=== PATIENT | male | born 1985 | race Two or more races ===

== ENCOUNTER 2020-08-20 12:34 | Emergency (ER) | payer MEDICAID, SELFPAY ==
[2020-08-20 13:55] VITALS: BP 130/75; PULSE 98; RESP 20; TEMP 36.9; O2SAT 100; BMI 36.5
[2020-08-20 14:23] LABS: MANUAL DIFF FLAG NO
[2020-08-20 14:24] LABS: Basophils Percent Auto 0.3 % (0-2); Eosinophils Percent Auto 0.2 % (0-4); Hemoglobin 16.1 g/dl (14.0-18.0); Imm Gran Abs Auto 0.09 X10*3/uL (0.00-0.03); Imm Gran Pct Auto 0.7 % (0.0-0.4); Lymphocytes Percent Auto 15.7 % (20-40); Mean Corpuscular HGB Conc 31.6 g/dl (31.0-36.0); Mean Corpuscular Hemoglobin 28.5 pg (27.0-33.0); Mean Corpuscular Volume 90.3 fL (80-98); Monocytes Absolute Auto 0.9 X10*3/uL (0.1-1.2); Monocytes Percent Auto 7.1 % (2-11); Neutrophils Absolute Auto 9.9 X10*3/uL (2.0-8.3); Platelet Count 339 X10*3/uL (160-400); Red Blood Count 5.65 X10*6/uL (4.60-5.80); Red Cell Distribution Width 15.4 % (11.0-16.0)
[2020-08-20 14:25] LABS: Glucose Urine UA NEG (NEG); Leukocyte Esterase Urine NEG (NEG); Nitrite Urine NEG (NEG); Specific Gravity - Urine 1.025 (1.005-1.025); Urine Blood NEG (NEG); Urine Ketones NEG (NEG); Urine Protein 1+ MG/DL (NEG-TRACE)
[2020-08-20 14:28] LABS: Appearance Urine HAZY; Color Urine YELLOW
[2020-08-20 14:34] LABS: Mucus Urine 2+ /LPF
[2020-08-20 15:48] VITALS: BP 127/75; PULSE 59; RESP 17; O2SAT 97
--- NOTE | 2020-08-20 16:00 | PC.NURSE ---
Patient has been sipping on water without difficulty since being placed in a bed.
--- NOTE | 2020-08-20 16:08 | ED_ITS ---
HPI - Abdominal Pain General Chief Complaint: Abdominal Pain Stated Complaint: Abd Pain Time Seen by Provider: 08/20/20 15:42 Source: patient Mode of arrival: ambulatory Limitations: no limitations History of Present Illness HPI narrative: Patient comes emergency room complaining left upper quadrant burning sensation. Patient states for the last 2 weeks, he has been having bloating, nausea vomiting and diarrhea. Patient states that he recently stopped the keto diet and resume his normal diet. Patient states this morning he went to a walk-in clinic, told him about his symptoms, he received a Toradol injectio n. Patient states that since then, he has been having epigastric burning and left upper quadrant burning as well. At this time, patient has no vomiting or diarrhea. MD elicited complaint: abdominal pain Related Data Previous Rx's Medication Instructions Recorded sucralfate [Carafate] 1 g PO BID #20 tab 08/20/20 Allergies Allergy/AdvReac Type Severity Reaction Status Date / Time No Known Allergies Allergy Verified 08/20/20 13:53 Review of Systems Review of Systems Constitutional : No Weight loss, No Fever, No Chills, No Night Sweats, No Fatigue, No Malaise ENT/Mouth : No Hearing loss, No Ear Pain, No Nasal Congestion, No Sinus Pain, No Hoarseness, No sore throat, No Rhinorrhea, No Swallowing Difficulty Eyes: No Eye Pain, No Swelling, No Redness, No Foreign Body, No Discharge, No Vision Changes Cardiovascular : No Chest Pain, No SOB, No Dyspnea on Exertion, No Orthopnea, No Edema, No Palpitations Respiratory : No Cough, No Sputum, No Wheezing, No Smoke Exposure, No Dyspnea Gastrointestinal : Complaining of nausea and vomiting and diarrhea which now self resolved No Constipation, complaining of epigastric and left upper quadrant burning sensation, No Hematochezia, No Melena Genitourinary : no irregular bleeding, No Dysuria, No Urinary Frequency, No Hematuria, No Urinary Incontinence, No Urgency, No Flank Pain, No Urinary Flow Changes, No Hesitancy Musculoskeletal : No joint pain, No Myalgias, No Joint Swelling Skin : No Skin Lesions, No rash Neuro : No Weakness, No Numbness, No Paresthesias, No Loss of Consciousness, No Dizziness, No Headache Psych : No Anxiety/Panic, No Depression, No SI/HI/AH/VH, No Social Issues, Heme/Lymph: No Bruising, No Bleeding,No Lymphadenopathy Endocrine : No Polyuria, No Polydipsia, No Temperature Intolerance Physical Exam Vital Signs: Vital Signs: Last Vital Signs Temp 98.5 F 08/20/20 13:55 Pulse 59 08/20/20 15:48 Resp 17 08/20/20 15:48 BP 127/75 08/20/20 15:48 Pulse Ox 97 08/20/20 15:48 Body Mass Index 36.5 Appearance: Alert. Oriented X3. No acute distress. Eyes: Pupils equal, round and reactive to light. ENT: Pharynx normal. Neck: Normal inspection. Neck supple. No lymph nodes noted. No crepitus CVS: Normal heart rate and rhythm. Pulses normal. Normal S1 and S2 Respiratory: No respiratory distress. Breath sounds normal. No Wheezing. No rales Abdomen: Soft and nontender. No rigidity. No distention. good BS x4 Skin: Skin warm and dry. Normal skin color. Normal skin turgor. Extremities: No lower extremity edema. No lower extremity edema. No Lacerations. No Rash Neuro: Oriented X 3. No motor deficit. No sensory deficit. Moving all exter mities. No slurred speech. Course Course Course Narrative: I discussed the labs with the patient. Patient has leukocytosis, likely reactive due to the nausea and vomiting and diarrhea that he has had over last 2 weeks. At this time, patient feels better after the GI cocktail, I discussed with the patient not to ingest any NSAIDs. Patient states he already takes omeprazole at home, patient will be taking care of it now. Patient instructed to follow-up with his primary care physician. Patient also requested to have the phone number for our gas analyst. MDM - Abdominal Pain Lab Data Result diagrams: 08/20/20 14:17 08/20/20 14:17 Labs: Lab Results 08/20/20 08/20/20 08/20/20 Range/Units 14:17 14:17 14:17 WBC 13.0 H (4.8-10.8) X10*3/uL RBC 5.65 (4.60-5.80) X10*6/uL Hgb 16.1 (14.0-18.0) g/dl Hct 51.0 (42-52) % MCV 90.3 (80-98) fL MCH 28.5 (27.0-33.0) pg MCHC 31.6 (31.0-36.0) g/dl RDW 15.4 (11.0-16.0) % Plt Count 339 (160-400) X10*3/uL MPV 9.0 L (9.4-12.4) fL Immature Gran % (Auto) 0.7 H (0.0-0.4) % Neut % (Auto) 76.0 H (45-73) % Lymph % (Auto) 15.7 L (20-40) % [place] % (Auto) 7.1 (2-11) % Eos % (Auto) 0.2 (0-4) % Baso % (Auto) 0.3 (0-2) % Lymph # (Auto) 2.0 (1.2-4.9) X10*3/uL [place] # (Auto) 0.9 (0.1-1.2) X10*3/uL Eos # (Auto) 0.0 (0.0-0.4) X10*3/uL Baso # (Auto) 0.0 (0.0-0.2) X10*3/uL Abs Immat Gran (auto) 0.09 H (0.00-0.03) X10*3/uL Absolute Neuts (auto) 9.9 H (2.0-8.3) X10*3/uL Absolute Nucleated RBC 0.000 (0.0-0.012) X10*3/uL Nucleated RBC % (auto) 0.0 (0.0-0.2) /100WBC Hold Blue Top SEE NOTE Sodium 138 (135-145) mmol/L Potassium 4.5 (3.3-5.1) mmol/L Chloride 103 (96-108) mmol/L Carbon Dioxide 27 (22-29) mmol/L Anion Gap 13 (12-20) BUN 12 (9-16) mg/dL Creatinine 1.23 (0.5-1.4) mg/dL Estim Creat Clear Calc 100.2 Estimated GFR > 60 Random Glucose 78 (60-115) mg/dL Calcium 9.8 (8.4-10.2) mg/dL Total Bilirubin 0.7 (0.0-1.0) mg/dL AST 17 (5-37) U/L ALT 26 (0-40) U/L Alkaline Phosphatase 56 (39-117) U/L Total Protein 7.3 (6.5-8.0) g/dL Albumin 4.3 (3.5-5.0) g/dL Urine Color Urine Appearance Urine pH (5.0-8.0) Ur Specific [place] (1.005-1.025) Urine Protein (NEG-TRACE) MG/DL Urine Glucose (UA) (NEG) MG/DL Urine Ketones (NEG) MG/DL Urine Blood (NEG) Urine Nitrite (NEG) Ur Leukocyte Esterase (NEG) Urine RBC (0) /HPF Urine WBC (0-4) /HPF Ur Squamous Epith Cells /LPF Urine Bacteria /LPF Urine Mucus /LPF 08/20/20 Range/Units 14:17 WBC (4.8-10.8) X10*3/uL RBC (4.60-5.80) X10*6/uL Hgb (14.0-18.0) g/dl Hct (42-52) % MCV (80-98) fL MCH (27.0-33.0) pg MCHC (31.0-36.0) g/dl RDW (11.0-16.0) % Plt Count (160-400) X10*3/uL MPV (9.4-12.4) fL Immature Gran % (Auto) (0.0-0.4) % Neut % (Auto) (45-73) % Lymph % (Auto) (20-40) % [place] % (Auto) (2-11) % Eos % (Auto) (0-4) % Baso % (Auto) (0-2) % Lymph # (Auto) (1.2-4.9) X10*3/uL [place] # (Auto) (0.1-1.2) X10*3/uL Eos # (Auto) (0.0-0.4) X10*3/uL Baso # (Auto) (0.0-0.2) X10*3/uL Abs Immat Gran (auto) (0.00-0.03) X10*3/uL Absolute Neuts (auto) (2.0-8.3) X10*3/uL Absolute Nucleated RBC (0.0-0.012) X10*3/uL Nucleated RBC % (auto) (0.0-0.2) /100WBC Hold Blue Top Sodium (135-145) mmol/L Potassium (3.3-5.1) mmol/L Chloride (96-108) mmol/L Carbon Dioxide (22-29) mmol/L Anion Gap (12-20) BUN (9-16) mg/dL Creatinine (0.5-1.4) mg/dL Estim Creat Clear Calc Estimated GFR Random Glucose (60-115) mg/dL Calcium (8.4-10.2) mg/dL Total Bilirubin (0.0-1.0) mg/dL AST (5-37) U/L ALT (0-40) U/L Alkaline Phosphatase (39-117) U/L Total Protein (6.5-8.0) g/dL Albumin (3.5-5.0) g/dL Urine Color YELLOW Urine Appearance HAZY Urine pH 6.0 (5.0-8.0) Ur Specific [place] 1.025 (1.005-1.025) Urine Protein 1+ H (NEG-TRACE) MG/DL Urine Glucose (UA) NEG (NEG) MG/DL Urine Ketones NEG (NEG) MG/DL Urine Blood NEG (NEG) Urine Nitrite NEG (NEG) Ur Leukocyte Esterase NEG (NEG) Urine RBC 1-4 (0) /HPF Urine WBC 1-4 (0-4) /HPF Ur Squamous Epith Cells NONE /LPF Urine Bacteria NONE /LPF Urine Mucus 2+ /LPF Discharge Plan Discharge Clinical Impression: Gastritis Qualifiers: Gastritis type: unspecified gastritis Chronicity: unspecified Gastritis bleeding: without bleeding Qualified Code(s): K29.70 - Gastritis, unspecified, without bleeding Patient Disposition: Home, Self-Care Instructions: Gastritis (ED), Diet for Stomach Ulcers and Gastritis (ED) Additional Instructions: Please follow-up with your primary care physician tomorrow. If you have any worsening or new symptoms, please return to the emergency room or call 911 Prescriptions: New sucralfate [Carafate] 1 gram tablet 1 g PO BID Qty: 20 RF: 0 Referrals: Clarence Metz [Physician] - 2 days [facility] Past Medical History Medical History No known health problems Social History Social History Alcohol intake: current Alcohol intake frequency: a few times a week Use of substances other than those prescribed or required for medical reasons: No Advance Directives: No Advance Directives Information Provided: Yes
[2020-08-20 16:14] LABS: Alanine Aminotransferase 26 U/L (0-40); Albumin Level 4.3 g/dL (3.5-5.0); Alkaline Phosphatase 56 U/L (39-117); Anion Gap 13 (12-20); Aspartate Amino Transferase 17 U/L (5-37); Bilirubin Total 0.7 mg/dL (0.0-1.0); Blood Urea Nitrogen 12 mg/dL (9-16); Calcium 9.8 mg/dL (8.4-10.2); Carbon Dioxide 27 mmol/L (22-29); Chloride 103 mmol/L (96-108); Creatinine Clr Calc Pharmacy 100.2; Estimated Glomerular Filt Rate > 60; Glucose Random 78 mg/dL (60-115); Potassium 4.5 mmol/L (3.3-5.1); Sodium 138 mmol/L (135-145); Total Protein 7.3 g/dL (6.5-8.0)
[2020-08-20] MEDS: Lidocaine HCl Viscous 2 % 15 ML SOLUTION MUCOUS MEM (16:17)
[2020-08-20] MEDS: Magnesium Hydrox/Alum Hydrox 30 ML ORAL.SUSP PO (16:17)
== END 2020-08-20 16:59 | disposition home or self-care (01) ==
PROVIDERS: Emergency Provider Emergency Medicine; PCP Nurse Practitioner Pediatrics
DX: K29.70 Gastritis, unspecified, without bleeding (principal); R10.12 Left upper quadrant pain
CPT/HCPCS: 36415; 80053; 81001; 85025; 99283; 99284

== ENCOUNTER 2023-09-02 15:25 | Outpatient (AMB) | payer OTHER, SELFPAY ==
[2023-09-02 15:29] VITALS: BP 112/72; PULSE 80; O2SAT 98; BMI 42.8
--- NOTE | 2023-09-02 15:29 | MHC.PC.OV ---
Vital Signs 09/02/23 15:29 Height 5 ft 9 in Weight 290 lb BMI 42.8 BP 112/72 Blood Pressure Location Lt brachial Position Sitting Pulse 80 Pulse Source Pulse Oximeter Pulse Oximetry (%) 98 Oxygen Delivery Method Room Air Intake Visit Reasons: Est Care/Requesting PE Intake Note: Pt is here today as a New Patient/PE Allergies No Known Allergies Allergy (Verified 09/02/23 15:46) Medication List - Last Reconciled 09/02/23 by KAE Sheldon bupropion HCl (smoking deter) 150 mg PO BID clonidine HCl 0.1 mg PO BID hydroxyzine pamoate 25 mg PO BEDTIME meloxicam 15 mg PO DAILY metformin 500 mg PO BID methocarbamol 750 mg PO BID PRN pantoprazole 40 mg PO DAILY pramipexole 0.25 mg PO BID PRN Tobacco use date assessed: 09/02/23 Dental Screening Dental Screen Date: 09/02/23 Did you have a dental visit in the last 12 months?: Yes Did you have a dental problem in the last 6 months where you did not have access to dental care?: Yes Was dental information given to patient?: Patient has dentist HPI HPI Comments History of Present Illness Details Patient is a 38-year-old male who I am meeting for the 1st time and is in for a physical exam. Patient is up-to-date with Tdap. Patient has established therapy with Edie, would like to find another therapist who is a better personality fit. Will have patient speak with in office community [facility]blem[facility] navigator to assist with this. He has a past medical history significant for: Generalized anxiety: Has established care with therapist. Discussed with patient the potential benefits of starting an SSRI. He would like to hold off for now and discuss at next visit. Patient does not endorse SI or HI. Osteoarthritis of bilateral knees: Patient reports bilateral steroid injections in his knees 3 months prior by [facility]. With good effect. Bilateral plantar fasciitis: Patient has history of foot injections for plantar fasciitis with good effect. States that pain is starting to return, will refer to Podiatry. Patient will also be educated on splints he can wear at night to help with pain in the morning. History of opioid use: Patient currently seeing be a chin and is weaning off of methadone. Started at 40 mg 1 year prior is now down to 3 mg with goal of weaning off completely. Right elbow pain: Occurred two months prior to appointment. Physical exam consistent with right bicep tear. Will order X-rays and refer to orthopedics. Sexual Dysfunction: History of hypersensitivity and premature ejaculation. Will refer to urology. Patient would also like to discuss reproductive difficulties. Pre-diabetic: Will draw A1c. Was started on metformin by previous provider. Has complaints of diarrhea. Will switch to extended release. Will draw fasting labs. [facility] Medical History No known health problems Family History Maternal Uncle Substance use disorder Mental health disorder Paternal Uncle Substance use disorder Father Substance use disorder Social History Housing: House Alcohol intake: current Alcohol intake frequency: a few times a week Patient Tobacco Use Status: Former Tobacco user e-Cigarette/Vaping Use: Currently Using service: No Current occupational status: employed Cognitive needs: No Hearing needs: No Vision needs: Yes Questionnaire PHQ-9 Over the last 2 weeks, how often have you been bothered by any of the following problems? 1. Little interest or pleasure in doing things: more than half the days 2. Feeling down, depressed, or hopeless: several days 3. Trouble falling or staying asleep, or sleeping too much: more than half the days 4. Feeling tired or having little energy: more than half the days 5. Poor appetite or overeating: several days 6. Feeling bad about yourself - or that you are a failure or have let yourself or your family down: more than half the days 7. Trouble concentrating on things, such as reading the newspaper or watching television: several days 8. Moving or speaking so slowly that other people could have noticed. Or the opposite - being so fidgety or restless that you have been moving around a lot more than usual: not at all 9. Thoughts that you would be better off or of hurting yourself in some way: not at all Total score: 11 Depression Screening Interpretation: Negative (meeting with community mental health navigator. ) Depression Screening Done: Yes 72943 - PHQ-9 Billing: Yes Source: Developed by Drs. Jaime Pineda, Katarina Sahu, Luis Flores and colleagues, with an educational yaa from [employer]. Thrive Questionnaire Date Thrive assessed: 09/02/23 I am a: Patient What is your living situation today?: I have a steady place to live Within the past 12 months, did the food you bought not last and you didn't have the money to get more?: Sometimes True Within the past 12 months, did you worry whether your food would run out before you got money to buy more?: Sometimes True Do you have trouble paying for medicines?: No Do you have trouble getting transportation to medical appointments?: No Do you have trouble paying your heating and electricity bill?: No Do you have trouble taking care of your child, family member or friend?: No Do you have trouble with day-to-day activities such as bathing, preparing meals, shopping, managing finances, etc.?: No Are you currently unemployed and looking for a job?: No Are you interested in more education?: No THRIVE Score: 2 AUDIT C Alcohol Use Questionnaire (AUDIT-C) 1. How often do you have a drink containing alcohol?: Never Total Score: 0 VENU-7 AMB Questionnaire VENU-7 Date VENU - 7 assessed: 09/02/23 Feeling nervous, anxious, or on edge: 3 = Nearly every day Not being able to stop or control worryin = Nearly every day Worrying too much about different things: 3 = Nearly every day Trouble relaxin = Nearly every day Being so restless that it is hard to sit still: 0 = Not at all Becoming easily annoyed or irritable: 3 = Nearly every day Feeling afraid as if something awful might happen: 3 = Nearly every day Total VENU-7 score (0-4 normal; 5-9 mild; 10-14 moderate; 15-21 severe): 18 Source: Developed by Drs. Jaime Pineda, Katarina Sahu, Luis Flores and colleagues, with an educational yaa from [employer]. VENU-7 Assessment Billing VENU-7 Assessment Tool: VENU-7 Assessment 92083 (In treatment. meeting with community mental joana navigator to find therapist and psychiatrist. ) Review of Systems Const All systems reviewed & are unremarkable except as noted in HPI and below Physical exam (Primary Care) Vital Signs: Last Vital Signs Pulse 80 09/02/23 15:29 BP 112/72 09/02/23 15:29 Pulse Ox 98 09/02/23 15:29 Oxygen Delivery Method Room Air 09/02/23 15:29 Care Plan Goal for BP management: BP is controlled. BMI result Body Mass Index 28.1 BMI Assessment/Plan discussion: High BMI High, discussed plan: lifestyle and physical activity Tobacco/Smoking Status: Tobacco use Status Tobacco use date assessed 09/02/23 09/02/23 15:31 Patient Tobacco Use Status Former Tobacco user 09/02/23 15:31 e-Cigarette/Vaping Use Currently Using 09/02/23 15:31 PHQ-9: PHQ-9 Score PHQ-9: Total score 11 09/02/23 16:50 Depression Screening Interpretation: Negative (meeting with community mental health navigator. ) Thrive Assessment: Date of Thrive Assessment Date Thrive assessed 09/02/23 09/02/23 16:50 Const General: cooperative and no acute distress Orientation/consciousness: patient oriented x3 Limitations: no limitations HENMT Head: Yes normal to inspection, Yes normocephalic and Yes atraumatic Ears: hearing grossly normal bilaterally and TM's normal bilaterally General nose exam: Normal external nose present Mouth: Normal oral and palatal mucosa present Teeth and gingiva: dentition normal Eyes General: appearance normal, both eyes and all related structures Sclerae: sclerae normal Pupils: Equal, round and reactive pupils present EOM: EOMs intact bilaterally Direct Ophthalmoscopy: normal light reflex, no photophobia and no papilledema Neck Neck: Yes normal visual inspection, Yes full ROM and Yes no lymphadenopathy Resp Effort & Inspection: normal respiratory effort Auscultation: clear to auscultation bilaterally Cardio Rate: regular rate Rhythm: regular rhythm Heart sounds: S1 normal heart sound present and S2 normal heart sound present Peripheral pulses: Peripheral pulses 2+ throughout GI Inspection: Yes normal to inspection Auscultation: normal bowel sounds Rectal Exam - Male: Yes deferred General: Yes no CVA tenderness Back/Spine/Pelvis Back: no CVA tenderness Cervical Spine: cervical ROM normal Skin General skin exam: no rashes or lesions noted Neuro General: patient oriented x3 Cranial nerves: Yes CN's II-XII intact bilaterally and Yes Equal, round and reactive pupils present Cognition (Neuro): normal cognition Gait exam (Neuro): Normal gait present Motor exam (neuro): 5/5 motor strength present throughout Romberg Test: Negative Extrem Right upper extremity: shoulder/upper arm Details: abnormal to inspection (Indentation of right bicep with flexion) Right lower extremity: knee (+crepitus) Left lower extremity: knee (crepitus) Details: crepitus Psych Affect: normal affect Attitude: cooperative Thought process: Normal thought process present Thought content: Normal thought content present Insight: Good insight present (Psych) Judgement: Good judgement present (Psych) Results AMB Hemoglobin A1c AMB Hemoglobin A1c 5.4 % Last Edit by Mary Tamayo CMA on 09/02/23 16:01 Results Reviewed Results Reviewed: Laboratory Last Values Hgb A1c (Clinic) 5.4 % (4.0-6.0) 09/02/23 15:51 Assessment and Plan Assessment & Plan (1) Physical exam: Comment: Will draw labs. Will follow-up with results. Patient has been educated on diet and exercise. Is limited exercise due to pain in right elbow/biceps area. Patient has been educated on testicular self-exams. Code(s): Z00.00 - Encounter for general adult medical examination without abnormal findings (2) Tear of right biceps muscle: Comment: Will obtain right elbow X ray and refer to Orthopedics Code(s): S46.211A - Strain of muscle, fascia and tendon of other parts of biceps, right arm, initial encounter Qualifiers: Encounter type: initial encounter Qualified Code(s): S46.211A - Strain of muscle, fascia and tendon of other parts of biceps, right arm, initial encounter (3) Plantar fasciitis: Comment: Will refer to Podiatry. Code(s): M72.2 - Plantar fascial fibromatosis (4) Obstructive sleep apnea: Comment: Will refer to Sleep Medicine. Code(s): G47.33 - Obstructive sleep apnea (adult) (pediatric) (5) Sexual dysfunction: Comment: Will refer to Urology. Code(s): R37 - Sexual dysfunction, unspecified (6) History of reproductive problem in male patient: Comment: Will refer to Urology. Code(s): Z87.438 - Personal history of other diseases of male genital organs (7) Generalized anxiety disorder: Comment: Patient will meet with community mental health navigator in office to establish new therapist. And psychiatrist. Patient would like to discuss potential starting SSRI at next visit. Code(s): F41.1 - Generalized anxiety disorder (8) History of prediabetes: Comment: Patient has history of prediabetes. Metformin controlled in office today 5.4 patient will have metformin changed to extended release formulation due to history of diarrhea. Code(s): Z87.898 - Personal history of other specified conditions Plan Patient to follow-up in 3-4 months. Will draw labs. Will follow-up after last Orders: Orders Vitamin D 25-OH (D2 and D3) Today Z13.21 - Encounter for screening for nutritional disorder Vitamin B6 Today Z13.21 - Encounter for screening for nutritional disorder TSH reflex Free T4 Today Z13.29 - Encounter for screening for other suspected endocrine disorder Lipid Panel Today Z13.220 - Encounter for screening for lipoid disorders Complete Blood Count Auto Diff Today Z13.0 - Encounter for screening for diseases of the blood and blood-forming organs and certain disorders involving the immune mechanism AMB Hemoglobin A1c Today Z13.9 - Encounter for screening, unspecified XR elbow RT min 3V Today M25.521 - Pain in right elbow PFT pulmonary function test Today J45.909 - Unspecified asthma, uncomplicated Vitamin B12 Today Z13.21 - Encounter for screening for nutritional disorder UA CC w/rflx Micro + Cult Today Z13.89 - Encounter for screening for other disorder Comprehensive Met. Panel Today Z91.89 - Other specified personal risk factors, not elsewhere classified Referrals Sleep Medicine Referral G47.33 - Obstructive sleep apnea (adult) (pediatric) Urology Referral R37 - Sexual dysfunction, unspecified Orthopedics Referral S46.211A - Strain of muscle, fascia and tendon of other parts of biceps, right arm, initial encounter Podiatry Referral M72.2 - Plantar fascial fibromatosis Medications: New metformin ER 500 mg PO BID 180 tabs 0RF albuterol sulfate 90 mcg/actuation 2 puffs inhalation Q6H PRN 8.5 grams 0RF shortness of breath or wheezing Discontinued sucralfate (Carafate) Discontinued Reason: Patient no longer taking 1 g PO BID 20 tabs 0RF Coding Level of Care Code New Pt Prev Care 18-39yr([id number] Diagnoses Physical exam Z00.00 Tear of right biceps muscle, initial encounter S46.211A Encounter type: initial encounter Plantar fasciitis M72.2 Obstructive sleep apnea G47.33 Sexual dysfunction R37 History of reproductive problem in male patient Z87.438 Generalized anxiety disorder F41.1 History of prediabetes Z87.898 Additional Codes VENU-7 Assessment Billing - VENU-7 Assessment Tool: VENU-7 Assessment [id number] ([id number]) Time Spent (min) 35
== END 2023-09-02 17:07 | disposition home or self-care (01) ==
PROVIDERS: PCP Nurse Practitioner Pediatrics; Visit Provider Nurse Practitioner Primary Care
DX: Z00.00 Encounter for general adult medical examination without abnormal findings (principal); S46.211A Strain of muscle, fascia and tendon of other parts of biceps, right arm, initial encounter; M72.2 Plantar fascial fibromatosis; G47.33 Obstructive sleep apnea (adult) (pediatric); Z86.39 Personal history of other endocrine, nutritional and metabolic disease; R37 Sexual dysfunction, unspecified; Z87.438 Personal history of other diseases of male genital organs; F41.1 Generalized anxiety disorder
CPT/HCPCS: 83036; 99385

== ENCOUNTER 2023-09-16 10:45 | Outpatient (AMB) | payer OTHER, SELFPAY ==
--- NOTE | 2023-09-16 11:03 | MHC.OFFVIS ---
Intake Visit Reasons: New Pt - ?Right Distal Bicep Tear Intake Note: Ishan is a 38 year old right hand dominant male who presents today for concerns of a right distal bicep tendon tears. Patient reports that he felt a pop back in June. 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 Occasional cramping at the distal end of bicep. Denies numbness and tingling. He does not take anything for his pain as it not quite painful but is interfering with his work. Allergies No Known Allergies Allergy (Verified 09/16/23 11:06) HPI HPI New Pt - ?Right Distal Bicep Tear: Details: Ishan is a 38 year old right hand dominant male who presents today for concerns of a right distal bicep tendon tears. Patient reports that he felt a pop back in June. 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 Occasional cramping at the distal end of bicep. Denies numbness and tingling. He does not take anything for his pain as it not quite painful but is interfering with his work. [facility] Medical History No known health problems Family History Maternal Uncle Substance use disorder Mental health disorder Paternal Uncle Substance use disorder Father Substance use disorder Social History (Updated 09/16/23 @ 11:08 by Aissatou Cervantes [facility]) Housing: House Alcohol intake: current Alcohol intake frequency: a few times a week Patient Tobacco Use Status: Former Tobacco user e-Cigarette/Vaping Use: Currently Using service: No Current occupational status: employed Current occupation: [employer] Cognitive needs: No Hearing needs: No Vision needs: Yes Physical Exam Extrem Other: Right biceps tendon not palpable at distal insertion Right hook test + Weakness in supination Assessment & Plan Assessment & Plan (1) Rupture of right distal biceps tendon: Code(s): S46.211A - Strain of muscle, fascia and tendon of other parts of biceps, right arm, initial encounter Category: Medical Plan: 3months s/p rupture of right distal biceps. I reviewed my findings with him and discussed the function and anatomy of his injury. I do not think it is possible to repair the tendon and I do not recommend reconstruction. I explained the natural history of biceps injuries and recommend he resume activity as tolerated. He will try a compression sleeve. He may follow up as needed. Coding Level of Care Code New Pt Level 4 (49134) Diagnoses Rupture of right distal biceps tendon S46.211A
== END 2023-09-16 12:37 | disposition home or self-care (01) ==
PROVIDERS: PCP Internal Medicine; Visit Provider Orthopaedic Surgery
DX: S46.211A Strain of muscle, fascia and tendon of other parts of biceps, right arm, initial encounter (principal)
CPT/HCPCS: 99203

== ENCOUNTER → 2023-09-16 10:45 | Outpatient (BNVA) | payer OTHER, SELFPAY | PROVIDERS: PCP Internal Medicine; Visit Provider Orthopaedic Surgery | DX: S46.211A Strain of muscle, fascia and tendon of other parts of biceps, right arm, initial encounter (principal) | CPT/HCPCS: 99202 ==

== ENCOUNTER 2023-09-27 13:31 | Emergency (ER) | payer OTHER, SELFPAY ==
--- NOTE | ~2023-09-27 | XR_ITS ---
EXAMINATION: XR CHEST CLINICAL INFORMATION: Chest pain COMPARISON: None available. TECHNIQUE: 2 views of the chest were obtained. FINDINGS: Lungs clear. No pleural effusions. Heart and pulmonary vessels are normal. XR/XR chest 2V IMPRESSION: No active disease.
--- NOTE | 2023-09-27 13:33 | ECG_ITS ---
Test Reason : CHEST PAIN Blood Pressure : / mmHG Vent. Rate : 094 BPM Atrial Rate : 094 BPM P-R Int : 152 ms QRS Dur : 088 ms QT Int : 352 ms P-R-T Axes : 041 -15 -04 degrees QTc Int : 440 ms Normal sinus rhythm Possible Left atrial enlargement Borderline ECG No previous ECGs available Referred By: Generic ED Physician Electronically Signed By:JOSE M GREER MD
[2023-09-27 13:43] VITALS: BP 134/97; PULSE 96; RESP 18; TEMP 36.6; O2SAT 97; BMI 41.3
--- NOTE | 2023-09-27 13:46 | ED_ITS ---
HPI - Chest Pain General Chief Complaint: Chest Pain Stated Complaint: CP Time Seen by Provider: 09/27/23 16:47 Source: patient and RN notes reviewed Mode of arrival: ambulatory Limitations: no limitations History of Present Illness ED Provider: Latia KELLY narrative: 38-year-old male with past medical history significant for hyperlipidemia, prediabetes, obstructive sleep apnea, anxiety presents for evaluation of chest. Patient reports midsternal chest pain that radiates slightly to the right side starting at 11:00 a.m, about 5 hours prior to my evaluation He states his pain is burning in nature, coming and going He states that last night he had very bad heartburn He states that he recently stopped all of his medications because ?I was feeling better and did not think that I need them. ? Currently his chest pain is 0/10 He has not had any shortness of breath, palpitations associated with his pain He states the pain does come randomly in his unrelated to exertion or eating He has no other complaints or concerns at this time Related Data Home Medications ?Medication ?Instructions ?Recorded ?Confirmed clonidine HCl 0.1 mg tablet 0.1 mg PO BID 09/02/23 09/02/23 hydroxyzine pamoate 25 mg capsule 25 mg PO BEDTIME 09/02/23 09/02/23 meloxicam 15 mg tablet 15 mg PO DAILY 09/02/23 09/02/23 pantoprazole 40 mg tablet,delayed 40 mg PO DAILY 09/02/23 09/02/23 release pramipexole 0.25 mg tablet 0.25 mg PO BID PRN 09/02/23 09/02/23 atorvastatin 80 mg tablet 80 mg PO DAILY 09/16/23 Previous Rx's ?Medication ?Instructions ?Recorded albuterol sulfate 90 mcg/actuation 2 puff inhalation Q6H PRN 09/02/23 aerosol inhaler shortness of breath or wheezing #8.5 grams metformin 500 mg tablet,extended 500 mg PO BID #180 tabs 09/02/23 release 24 hr Allergies Allergy/AdvReac Type Severity Reaction Status Date / Time No Known Allergies Allergy Verified 09/27/23 13:45 Review of Systems 2 Constitutional: Constitutional: Denies body ache(s), Denies chills and Denies fever(s) Eyes: Eyes: Denies blurry vision ENT: Denies sore throat Cardiovascular: Cardiovascular: Reports chest pain, Reports Epigastric Pain and Denies dyspnea Respiratory: Respiratory: Denies cough and Denies dyspnea Gastrointestinal: Gastrointestinal: Denies abdominal pain, Denies nausea and Denies vomiting Genitourinary: Genitourinary: Denies difficulty urinating Musculoskeletal: Musculoskeletal: Denies back pain Integumentary/Breasts: Skin/Breast: Denies rash Psychiatric: Psychiatric: Reports anxiety PMFSH Past Medical History Medical History No known health problems Family History Family History Maternal Uncle Substance use disorder Mental health disorder Paternal Uncle Substance use disorder Father Substance use disorder Social History Social History (Updated 09/16/23 @ 11:08 by Aissatou Cervantes CMA) Housing: House Alcohol intake: current Alcohol intake frequency: a few times a week Patient Tobacco Use Status: Former Tobacco user e-Cigarette/Vaping Use: Currently Using Advance Directives: No Advance Directives Information Provided: Yes Do you have a plan to hurt others: No Plan service: No Current occupational status: employed Current occupation: [employer] Cognitive needs: No Hearing needs: No Vision needs: Yes Physical Exam 2 Vital Signs: Vital Signs: Last Vital Signs Temp 97.8 F 09/27/23 17:14 Pulse 85 09/27/23 17:14 Resp 16 09/27/23 17:14 BP 131/99 H 09/27/23 17:14 Pulse Ox 97 09/27/23 17:14 O2 Del Method Room Air 09/27/23 17:14 BMI result Body Mass Index 41.3 Const: General: healthy appearing, comfortable, no acute distress, alert and awake Nutritional Appearance: well nourished Orientation/consciousness: p atient oriented x3 HEENT: Head: Yes normocephalic and Yes atraumatic Eyes: Eyelids: Yes eyelids normal Conjunctivae: conjunctivae normal S clerae: sclerae normal Corneas: corneas normal Pupils: Equal, round and reactive pupils present EOM: EOMs intact bilaterally Neck: Neck: Yes full ROM Resp: Effort & Inspection: normal respiratory effort, able to speak in complete sentences, no audible wheezes and not labored Auscultation: clear to auscultation bilaterally Cardio: Rate: regular rate Rhythm: regular rhythm GI: Inspection: No distended Palpation (GI): Soft to palpation, not firm, nontender, no guarding and not rigid Skin: General skin exam: elasticity normal Neuro: General: patient oriented x3 Cranial nerves: Yes Equal, round and reactive pupils present and Yes Bilaterally intact EOM present Cognition (Neuro): normal cognition Course Course Course Narrative: This is a Rapid Medical Examination (RME) performed by Ngoc Blake PA-C in triage. Full HPI, ROS, assessment and treatment plan per primary provider in the Main ED. 38 yo male with hx anxiety, KAILA, pre-DM, HTN (no longer on meds), obesity who presents to the ER for evaluation of nonradiating, intermittent right sided chest tightness that started at school around 11am. No SOB, nausea, diaphoresis. Pain started before he developed heart burn, took PPI. Plan: EKG, labs, CXR Medical Decision Making Medical Decision Making [facility] Narrative: 30-year-old male with past medical history as documented above presents for evaluation of intermittent chest pain. Currently he is asymptomatic. He describes his chest pain is burning in nature. Does have a history of GERD in his stopped taking his medications including his pantoprazole. His workup in the ER is reassuring, he rules out for ACS with 2- troponins, his EKG is nonischemic without arrhythmia, he also had a chest x-ray that shows no acute abnormalities. Differential Diagnosis Differential Diagnoses: The differential diagnosis associated with the presentation includes Chest pain GERD Medication noncompliance Chest wall pain Anxiety ACS less likely Admission/Observation Consideration of admission/observation: Escalation of care including admission/observation considered Consider admission for chest pain but the patient ruled out for ACS, is hemodynamically stable and is ultimately stable for discharge Lab Data [facility] Lab Attestation statement: I reviewed the patient's lab results. No leukocytosis or anemia. Normal platelet count. No electrolyte abnormalities. Troponin negative x2 09/27/23 14:00 09/27/23 14:00 Labs: Lab Results 09/27/23 09/27/23 Range/Units 14:00 16:12 WBC 7.8 (4.8-10.8) X10*3/uL RBC 6.56 H (4.60-5.80) X10*6/uL Hgb 16.6 (14.0-18.0) g/dl Hct 49.2 (42.0-52.0) % MCV 75.0 L (80.0-98.0) fL MCH 25.3 L (27.0-33.0) pg MCHC 33.7 (31.0-36.0) g/dl RDW 19.0 H (11.0-16.0) % Plt Count 229 (160-400) X10*3/uL MPV 9.4 (9.4-12.4) fL Immature Gran % (Auto) 0.5 H (0.0-0.4) % Neut % (Auto) 64.3 (45-73) % Lymph % (Auto) 26.6 (20-40) % [place] % (Auto) 7.2 (2-11) % Eos % (Auto) 0.9 (0-4) % Baso % (Auto) 0.5 (0-2) % Lymph # (Auto) 2.1 (1.2-4.9) X10*3/uL [place] # (Auto) 0.6 (0.1-1.2) X10*3/uL Eos # (Auto) 0.1 (0.0-0.4) X10*3/uL Baso # (Auto) 0.0 (0.0-0.2) X10*3/uL Abs Immat Gran (auto) 0.04 H (0.00-0.03) X10*3/uL Absolute Neuts (auto) 5.0 (2.0-8.3) x10*3/uL Absolute Nucleated RBC 0.000 (0.0-0.012) X10*3/uL Nucleated RBC % (auto) 0.0 (0.0-0.2) /100WBC Sodium 141 (135-145) mmol/L Potassium 4.0 (3.3-5.1) mmol/L Chloride 106 (96-108) mmol/L Carbon Dioxide 22 (22-29) mmol/L Anion Gap 17 (12-20) BUN 12 (9-16) mg/dL Creatinine 1.25 (0.5-1.4) mg/dL Estim Creat Clear Calc 105.6 Estimated GFR > 60 Random Glucose 116 H (60-115) mg/dL Calcium 10.2 (8.4-10.2) mg/dL Magnesium 2.1 (1.6-2.6) mg/dL Total Bilirubin 0.5 (0.0-1.0) mg/dL Direct Bilirubin < 0.1 (0.0-0.5) mg/dL AST 21 (5-37) U/L ALT 47 H (0-40) U/L Alkaline Phosphatase 81 (39-117) U/L Troponin I High Sens < 2.7 < 2.7 (<3.5-35.0) ng/L Total Protein 8.3 H (6.5-8.0) g/dL Albumin 4.5 (3.5-5.0) g/dL Independent Interpretation I performed an independent interpretation of an: EKG (Normal sinus rhythm with a rate of [address] segment changes, no ectopy) and Plain X-Ray Interpretation: Agree with Radiology interpretation, no acute pathology Radiology Impression Discussion of test interpretation with radiology: I have reviewed the radiologist's reading. Radiologist Impression: XR/XR chest 2V IMPRESSION: No active disease. Discharge Plan Discharge Clinical Impression: Chest pain Patient Disposition: Home, Self-Care Instructions: Chest Pain (ED) Additional Instructions: Your workup in the ER today was reassuring. This includes your blood work, chest x-ray, EKG. I recommend using Tylenol as needed for further pain. I recommend that you continue your home medications for your cholesterol, your heartburn and using her CPAP at home Follow-up with your primary doctor, return for new or worsening symptoms Prescriptions: No Action pramipexole 0.25 mg tablet 0.25 mg PO BID PRN meloxicam 15 mg tablet 15 mg PO DAILY hydroxyzine pamoate 25 mg capsule 25 mg PO BEDTIME pantoprazole 40 mg tablet,delayed release (DR/EC) 40 mg PO DAILY clonidine HCl 0.1 mg tablet 0.1 mg PO BID metformin 500 mg tablet extended release 24 hr 500 mg PO BID Qty: 180 0RF albuterol sulfate 90 mcg/actuation HFA aerosol inhaler 2 puff inhalation Q6H PRN (Reason: shortness of breath or wheezing) Qty: 8.5 0RF atorvastatin 80 mg tablet 80 mg PO DAILY Interventions: ED Discharge Assessment Last Done: 09/27/23 17:14 Print Language: Luxembourgish
[2023-09-27 14:03] LABS: MANUAL DIFF FLAG NO
[2023-09-27 14:12] LABS: Basophils Percent Auto 0.5 % (0-2); Eosinophils Absolute Auto 0.1 X10*3/uL (0.0-0.4); Eosinophils Percent Auto 0.9 % (0-4); Hematocrit 49.2 % (42.0-52.0); Hemoglobin 16.6 g/dl (14.0-18.0); Imm Gran Abs Auto 0.04 X10*3/uL (0.00-0.03); Imm Gran Pct Auto 0.5 % (0.0-0.4); Lymphocytes Absolute Auto 2.1 X10*3/uL (1.2-4.9); Lymphocytes Percent Auto 26.6 % (20-40); Mean Corpuscular HGB Conc 33.7 g/dl (31.0-36.0); Mean Corpuscular Hemoglobin 25.3 pg (27.0-33.0); Mean Platelet Volume 9.4 fL (9.4-12.4); Monocytes Absolute Auto 0.6 X10*3/uL (0.1-1.2); Monocytes Percent Auto 7.2 % (2-11); Neutrophils Percent Auto 64.3 % (45-73); Platelet Count 229 X10*3/uL (160-400); Red Blood Count 6.56 X10*6/uL (4.60-5.80); White Blood Count 7.8 X10*3/uL (4.8-10.8)
[2023-09-27 14:31] LABS: Alanine Aminotransferase 47 U/L (0-40); Albumin Level 4.5 g/dL (3.5-5.0); Alkaline Phosphatase 81 U/L (39-117); Anion Gap 17 (12-20); Aspartate Amino Transferase 21 U/L (5-37); Bilirubin Direct < 0.1 mg/dL (0.0-0.5); Bilirubin Total 0.5 mg/dL (0.0-1.0); Blood Urea Nitrogen 12 mg/dL (9-16); Calcium 10.2 mg/dL (8.4-10.2); Carbon Dioxide 22 mmol/L (22-29); Chloride 106 mmol/L (96-108); Creatinine Clr Calc Pharmacy 105.6; Estimated Glomerular Filt Rate > 60; Glucose Random 116 mg/dL (60-115); Magnesium 2.1 mg/dL (1.6-2.6); Sodium 141 mmol/L (135-145); Total Protein 8.3 g/dL (6.5-8.0)
[2023-09-27 14:47] LABS: Troponin-I High Sensitivity < 2.7 ng/L (<3.5-35.0)
--- NOTE | 2023-09-27 16:10 | PC.NURSE ---
pt reports that he has somewhere to be by 6pm and that if they wait is long he doesn't want to stay . educated pt on importance of follow up with chest pain and troponins, pt willing to allow for second blood draw, he is refusing to allow staff to place cardiac leads on him at this time.
[2023-09-27 16:39] LABS: Troponin-I High Sensitivity < 2.7 ng/L (<3.5-35.0)
[2023-09-27 17:14] VITALS: BP 131/99; PULSE 85; RESP 16; TEMP 36.6; O2SAT 97
== END 2023-09-27 17:17 | disposition home or self-care (01) ==
PROVIDERS: Physician Assistant; Emergency Provider Emergency Medicine Emergency Medical Services; PCP Internal Medicine
DX: R07.89 Other chest pain (principal); Z79.899 Other long term (current) drug therapy
CPT/HCPCS: 36415; 71046; 80048; 80076; 83735; 84484; 85025; 93005; 99283; 99284

== ENCOUNTER → 2023-09-27 13:33 | Outpatient (BNV) | payer OTHER, SELFPAY | PROVIDERS: Emergency Provider Emergency Medicine Emergency Medical Services; PCP Internal Medicine; Visit Provider Internal Medicine Cardiovascular Disease | DX: R07.9 Chest pain, unspecified (principal) | CPT/HCPCS: 93010 ==

== ENCOUNTER 2023-11-01 12:42 | Outpatient (AMB) | payer OTHER, SELFPAY ==
--- NOTE | 2023-11-01 13:02 | MHC.OFFVIS ---
Intake Visit Reasons: premature ejaculation/reproductive difficulties Intake Note: New Patient presents for initial visit for premature ejaculation and infertility Urology Medications: none Blood Thinner: none Housing Property Manager Required: No Accompanied by: Self / Same As Patient Allergies No Known Allergies Allergy (Verified 11/01/23 14:05) Medication List - Last Reconciled 11/01/23 by KAE Ellis- albuterol sulfate 90 mcg/actuation 2 puffs inhalation Q6H PRN atorvastatin 80 mg PO DAILY pantoprazole 40 mg PO DAILY tadalafil (Cialis) 20 mg PO DAILY 90 days tadalafil (Cialis) 5 mg PO DAILY 90 days HPI Comments Details: Ishan is a very pleasant 38-year-old male patient of Dr. Schaeffer. He has a past medical history of hyperlipidemia, sleep apnea, and GERD. He presents to the office today as a new patient for premature ejaculation, ED, and history of hypogonadism. In discussion with the patient today he reports while incarcerated he had been receiving testosterone therapy as he had been on methadone and was noted to have low testosterone however since he has been released he has not had testosterone therapy and is enquiring further assessment evaluation. He also reports noting issues with obtaining and maintaining his erections. He does feel he is able to obtain erections however feels maintaining erections to be difficult. He reports a history of sleep apnea however has not been wearing his machine as he does not feel he has sleep apnea anymore. Discussed at length potential causes of these urological conditions he is experiencing. He otherwise denies any bothersome urinary issues. He denies urinary urgency, urinary frequency, incontinence, nocturia, hematuria, dysuria, foul smelling urine, changes to urinary stream, flank pain, fever, and or chills. He is happy with his current voiding parameters. He also reports over the last 3 months he has been trying to family plan and has not been successful and is enquiring further workup for possible infertility. Does have a 17-year-old child and his partner has 2 children small children of her own however together they would like to start a family. He otherwise offers no other issues or concerns at this time. In review of patient's chart it appears labs are as follows PSA 10/04 0.3 FSH 10/04 3.7 LH 10/04 5.7 SHBG 10/04 12.2 Free testosterone 10/04 7.62 % free testosterone 10/04 4.4% Total testosterone 10/04 172.8 PFSH Medical History No known health problems Family History Maternal Uncle Substance use disorder Mental health disorder Paternal Uncle Substance use disorder Father Substance use disorder Social History Housing: House Alcohol intake: current Alcohol intake frequency: a few times a week Patient Tobacco Use Status: Former Tobacco user e-Cigarette/Vaping Use: Currently Using service: No Current occupational status: employed Current occupation: [employer] Cognitive needs: No Hearing needs: No Vision needs: Yes Review of Systems Const All systems reviewed & are unremarkable except as noted in HPI and below Physical Exam Const General: cooperative, comfortable, no acute distress, well developed, alert and awake Nutritional Appearance: overweight Orientation/consciousness: patient oriented x3 Limitations: no limitations HEENT Head: Yes normal to inspection, Yes normocephalic and Yes atraumatic Ears: hearing grossly normal bilaterally Eyes General: appearance normal, both eyes and all related structures Neck Neck: Yes normal visual inspection and Yes trachea midline Chest Chest palpation & inspection: normal inspection of the chest Resp Effort & Inspection: normal respiratory effort and able to speak in complete sentences Cardio Rate: regular rate GI Inspection: Yes normal to inspection General: Yes no CVA tenderness Back/Spine/Pelvis Back: no CVA tenderness Skin General skin exam: no rashes or lesions noted Neuro General: patient oriented x3 Extrem General: Yes normal to inspection Psych Appearance: grossly normal and well kempt Mental Status: mental status grossly normal Speech and movement: Normal speech and movement present and Clear speech present Affect: normal affect Attitude: cooperative Thought process: Normal thought process present Thought content: Normal thought content present Insight: Fair insight present (Psych) Judgement: Fair judgement present (Psych) Results AMB Urinalysis, Automated UA Leukoctes 0 Rayo/uL Last Edit by Kaitlynn Zepeda on 11/01/23 13:33 UA Nitrite Last Edit by Kaitlynn Zepeda on 11/01/23 13:33 UA Urobilinogen 0.2 mg/dL Last Edit by Kaitlynn Zepeda on 11/01/23 13:33 UA Protein 15 mg/dL Last Edit by Kaitlynn Zepeda on 11/01/23 13:33 UA pH 6.0 Last Edit by Kaitlynn Zepeda on 11/01/23 13:33 UA Blood 0 Angel/uL Last Edit by Kaitlynn Zepeda on 11/01/23 13:33 UA Specific [place] 1.015 Last Edit by Kaitlynn Zepeda on 11/01/23 13:33 UA Ketone Negative Last Edit by Kaitlynn Zepeda on 11/01/23 13:33 UA Bilirubin 0 mg/dL Last Edit by Kaitlynn Zepeda on 11/01/23 13:33 UA Glucose 0 mg/dL Last Edit by Kaitlynn Zepeda on 11/01/23 13:33 Results Reviewed Results Reviewed: Laboratory Last Values Urine pH (Auto) 6.0 11/01/23 13:29 Specific [place] (Auto) 1.015 11/01/23 13:29 Urine Protein (Auto) 15 mg/dL 11/01/23 13:29 Glucose (UA)(Auto) 0 mg/dL 11/01/23 13:29 Urine Ketones (Auto) Negative 11/01/23 13:29 Urine Blood (Auto) 0 Angel/uL 11/01/23 13:29 Urine Bilirubin (Auto) 0 mg/dL 11/01/23 13:29 Urine Urobilinogen (Auto) 0.2 mg/dL 11/01/23 13:29 Leukocyte Esterase (Auto) 0 Rayo/uL 11/01/23 13:29 Assessment & Plan Assessment & Plan (1) Hypogonadism in male: Code(s): E29.1 - Testicular hypofunction Category: Medical (2) Sexual dysfunction: Comment: Will refer to Urology. Code(s): R37 - Sexual dysfunction, unspecified Category: Medical (3) Obstructive sleep apnea: Comment: Will refer to Sleep Medicine. Code(s): G47.33 - Obstructive sleep apnea (adult) (pediatric) Category: Medical Plan In office urinalysis results reviewed with the patient today; as noted above. Discussed at length potential causes for ED, premature ejaculation, and potential for hypogonadism. Start Cialis as discussed and prescribed Prescription provided for p.r.n. on demand Will obtain testosterone free and total for further assessment evaluation. Discussed lifestyle modifications to assist with ED, premature ejaculation, and hypogonadism. Will obtain home sleep study for further assessment evaluation. Patient denies any bothersome urinary issues. Patient reports be happy with current voiding parameters. Discussed, stress, and educated on the importance of compliance with sleep apnea machine until further testing is completed. Discussed fellows kit for further assessment evaluation of infertility; however patient would like to think about this. Follow-up in 1-3 months with labs to be completed prior; or sooner with any issues, concerns, and or questions. Orders: Orders Testosterone, Free/Total Today E29.1 - Testicular hypofunction AMB Urinalysis Automated Today Z13.9 - Encounter for screening, unspecified RT home sleep study Today Medications: New tadalafil (Cialis) [id number] [facility] Member [id number] 20 mg PO DAILY 90 days 45 tabs 0RF tadalafil (Cialis) [id number] [facility]33 Member [id number] 5 mg PO DAILY 90 days 90 tabs 0RF Patient Instructions: The patient had an opportunity to ask questions regarding the treatment plan. All questions were answered. Physical exam, labs, and imaging were discussed and reviewed in detail. As well as risks, benefits, and discussion of treatment choices. No major barriers to understanding were identified. The patient expressed understanding and agreement with the above treatment plan. The patient was made aware they should contact our office by phone for worsening of their current condition, the appearance of new symptoms, or with any questions or concerns. Compliance is encouraged with any medications and follow up testing that is ordered. It is a privilege to be allowed the opportunity to participate in? your urological care.? Again, if you have any questions or concerns If you have any questions or concerns please do not hesitate to contact me. The office is [phone]. This note is constructed using voice recognition software. While every effort has been made to ensure accuracy fire protection specialist errors may have been included. Yours sincerely, YUVAL Ellis Coding Level of Care Code New Pt Level 4 (28685) Diagnoses Hypogonadism in male E29.1 Sexual dysfunction R37 Obstructive sleep apnea G47.33
== END 2023-11-01 13:55 | disposition home or self-care (01) ==
PROVIDERS: PCP Internal Medicine; Visit Provider Nurse Practitioner Family
DX: E29.1 Testicular hypofunction (principal); R37 Sexual dysfunction, unspecified; G47.33 Obstructive sleep apnea (adult) (pediatric); Z13.9 Encounter for screening, unspecified
CPT/HCPCS: 99204

== ENCOUNTER → 2023-11-01 12:42 | Outpatient (BNVA) | payer OTHER, SELFPAY | PROVIDERS: PCP Internal Medicine; Visit Provider Nurse Practitioner Family | DX: E29.1 Testicular hypofunction (principal); R37 Sexual dysfunction, unspecified; G47.33 Obstructive sleep apnea (adult) (pediatric) | CPT/HCPCS: 81003; 99202 ==

== ENCOUNTER 2023-12-02 10:39 | Outpatient (AMB) | payer OTHER, SELFPAY ==
--- NOTE | 2023-12-02 10:36 | A.OFFPC_ITS ---
Vital Signs 12/02/23 10:38 Height 5 ft 9 in Weight 287 lb BMI 42.4 Intake Visit Reasons: Weight loss options-Android Intake Note: Pt is having a TH visit for wgt loss options Allergies No Known Allergies Allergy (Verified 12/03/23 01:51) Medication List - Last Reconciled 12/03/23 by Gayathri Schaeffer MD albuterol sulfate 90 mcg/actuation 2 puffs inhalation Q6H PRN atorvastatin 80 mg PO DAILY pantoprazole 40 mg PO DAILY tadalafil (Cialis) 20 mg PO DAILY 90 days tadalafil (Cialis) 5 mg PO DAILY 90 days Wegovy (semaglutide (weight loss)) 0.25 mg (0.5 mL) subcut QWEEK NS Tobacco use date assessed: 12/02/23 Dental Screening Dental Screen Date: 12/02/23 Did you have a dental visit in the last 12 months?: Yes Did you have a dental problem in the last 6 months where you did not have access to dental care?: No Was dental information given to patient?: Patient has dentist HPI Weight loss options-Android HPI Details 38-year-old male, new to me, here today complaining of difficulty with losing weight. Patient states that he was doing well until a year ago when he was incarcerated. Patient blames his weight gain from having a poor diet and having not much exercise. He has been exercising now and has been avoiding a lot of simple carbs in his diet, but still not able to lose weight. Would like to try 1 of the GLP 1 agonist to help with weight loss. [facility] Medical History (Updated 12/02/23 @ 11:47 by Gayathri Schaeffer MD) Morbid obesity No known health problems Family History Maternal Uncle Substance use disorder Mental health disorder Paternal Uncle Substance use disorder Father Substance use disorder Social History Housing: House Alcohol intake: current Alcohol intake frequency: a few times a week Patient Tobacco Use Status: Former Tobacco user e-Cigarette/Vaping Use: Currently Using service: No Current occupational status: employed Current occupation: [employer] Cognitive needs: No Hearing needs: No Vision needs: Yes Questionnaire Thrive Questionnaire Date Thrive assessed: 09/02/23 VENU-7 AMB Questionnaire VENU-7 Date VENU - 7 assessed: 09/02/23 Source: Developed by Drs. Jaime Pineda, Katarina Sahu, Luis Flores and colleagues, with an educational yaa from [employer]. Review of Systems Const Denies body aches, Denies fever(s) and Denies headache(s) Eyes Denies change in vision ENT Denies dizziness, Denies headache(s), Denies nasal congestion, Denies nasal discharge and Denies sore throat Card Denies chest pain, Denies lightheadedness, Denies palpitations and Denies dyspnea Resp Denies chest congestion, Denies cough, Denies dyspnea and Denies wheezing GI Denies abdominal pain, Denies change in bowel habits and Denies heartburn Denies hematuria, Denies difficulty urinating, Denies dysuria, Denies urinary frequency and Denies urinary urgency Neuro Denies dizziness and Denies headache(s) Endo Denies polydipsia, Denies polyuria and Denies palpitations Rodolfo/Lymph Denies easy bruising Aller/Immun Denies seasonal rhinorrhea and Denies wheezing Physical exam (Primary Care) BMI result Body Mass Index 42.4 Tobacco/Smoking Status: Tobacco use Status Tobacco use date assessed 12/02/23 12/02/23 10:37 Patient Tobacco Use Status Former Tobacco user 12/02/23 10:37 e-Cigarette/Vaping Use Currently Using 12/02/23 10:37 Thrive Assessment: Date of Thrive Assessment Date Thrive assessed 09/02/23 12/02/23 10:37 Telehealth Telehealth Telehealth Platform: [facility] Location of provider rendering services: practice address Location of patient: address on file Patient Identification confirmed using: Name, : Yes Telehealth method: video Patient verbally consented to treatment: Yes Patient verbally consented to billing insurance company: Yes Patient informed of any privacy concerns related to visit: Yes Minutes spent on Phone/Video with Pt.: 16 Assessment and Plan Assessment & Plan (1) Morbid obesity: Code(s): E66.01 - Morbid (severe) obesity due to excess calories Plan: Prescription sent for we go be 0.25 mg, to inject 2 lower abdomen and outer thighs, repeat sites of administration, discuss about possible side effects of medication which may include nausea, abdominal discomfort, cramping, diarrhea or constipation, and it does seeing Amie increased risk for pancreatitis, thyroid cancer and sudden vision loss. Patient aware of side effects agreeable to get it prescribed. Combined taking this medication with adherence to recommended diet and getting regular exercise. Will see him back for follow-up in 3 months (2) History of prediabetes: Comment: Patient has history of prediabetes. Metformin controlled in office today 5.4 patient will have metformin changed to extended release formulation due to history of diarrhea. Code(s): Z87.898 - Personal history of other specified conditions Plan: Your previous fasting blood sugars were elevated above 100 mg/dL. Impaired glucose metabolism increases the risk for developing diabetes mellitus type 2, as well as heart attack and stroke later on. Lifestyle changes that promotes weight loss, healthy eating habits, and regular exercise are important, and can prevent the progression to diabetes (3) Hypogonadism in male: Code(s): E29.1 - Testicular hypofunction Plan: Followed by Urology Medications: New Wegovy (semaglutide (weight loss)) administer weeks 1 through 4 of therapy 0.25 mg (0.5 mL) subcut QWEEK 2 mL 1RF NS E66.01 - Morbid (severe) obesity due to excess calories, G47.33 - Obstructive sleep apnea (adult) (pediatric), M72.2 - Plantar fascial fibromatosis, Z87.898 - Personal history of other specified conditions Coding Level of Care Code Tele Est Pt Level 3 (31856) Diagnoses Morbid obesity E66.01 History of prediabetes Z87.898 Hypogonadism in male E29.1
[2023-12-02 10:38] VITALS: BMI 42.4
== END 2023-12-02 13:49 | disposition home or self-care (01) ==
LOC: HO.HMCC 10:39
PROVIDERS: PCP Internal Medicine; Visit Provider Internal Medicine
DX: E29.1 Testicular hypofunction (principal); E66.01 Morbid (severe) obesity due to excess calories; Z68.41 Body mass index [BMI] 40.0-44.9, adult; Z87.898 Personal history of other specified conditions

== ENCOUNTER → 2023-12-02 10:39 | Outpatient (BNVA) | payer OTHER, SELFPAY | PROVIDERS: PCP Internal Medicine; Visit Provider Internal Medicine ==

== ENCOUNTER 2024-01-10 12:18 | Outpatient (AMB) | payer OTHER, SELFPAY ==
[2024-01-10 12:20] VITALS: BP 124/80; PULSE 87; O2SAT 98; BMI 41.3
--- NOTE | 2024-01-10 12:20 | A.OFFPC_ITS ---
Vital Signs 01/10/24 12:20 Height 5 ft 9 in Weight 280 lb BMI 41.3 BP 124/80 Blood Pressure Location Lt brachial Position Sitting Pulse 87 Pulse Source Pulse Oximeter Pulse Oximetry (%) 98 Oxygen Delivery Method Room Air Intake Visit Reasons: Review labs/weight check Allergies No Known Allergies Allergy (Verified 01/15/24 21:58) Medication List - Last Reconciled 01/10/24 by Gayathri Schaeffer MD albuterol sulfate 90 mcg/actuation 2 puffs inhalation Q6H PRN atorvastatin 80 mg PO DAILY pantoprazole 40 mg PO DAILY tadalafil (Cialis) 5 mg PO DAILY 90 days tadalafil 20 mg PO DAILY PRN testosterone cypionate mg IM Wegovy (semaglutide (weight loss)) 0.25 mg (0.5 mL) subcut QWEEK NS Tobacco use date assessed: 01/10/24 Dental Screening Dental Screen Date: 01/10/24 Did you have a dental visit in the last 12 months?: Yes Did you have a dental problem in the last 6 months where you did not have access to dental care?: No Was dental information given to patient?: Patient has dentist HPI Review labs/weight check HPI Details 38-year-old history of morbid obesity, p rediabetes, hyperlipidemia, hypogonadism, currently being followed at [facility] endocrine clinic and history of generalized anxiety disorder, here today for follow-up. Has started using Wegovy at 0.25 mg injected once a week, and has lost approximately 7 lb already since starting the medication. He has been tolerating medication well, denies any adverse effects from taking it he however has not been able to move much unable to exercise due to chronic pain in his lower back which prevents him for walking for long distances. Not much relief afforded with applying heat or taking NSAIDs. [facility] Medical History (Updated 01/10/24 @ 12:58 by Gayathri Schaeffer MD) Dyslipidemia Piriformis syndrome of both sides Morbid obesity No known health problems Family History Maternal Uncle Substance use disorder Mental health disorder Paternal Uncle Substance use disorder Father Substance use disorder Social History Housing: House Alcohol intake: current Alcohol intake frequency: a few times a week Patient Tobacco Use Status: Former Tobacco user e-Cigarette/Vaping Use: Currently Using service: No Current occupational status: employed Current occupation: [employer] Cognitive needs: No Hearing needs: No Vision needs: Yes Questionnaire PHQ-9 Over the last 2 weeks, how often have you been bothered by any of the following problems? 1. Little interest or pleasure in doing things: more than half the days 2. Feeling down, depressed, or hopeless: not at all 3. Trouble falling or staying asleep, or sleeping too much: several days 4. Feeling tired or having little energy: several days 5. Poor appetite or overeating: not at all 6. Feeling bad about yourself - or that you are a failure or have let yourself or your family down: not at all 7. Trouble concentrating on things, such as reading the newspaper or watching television: not at all 8. Moving or speaking so slowly that other people could have noticed. Or the opposite - being so fidgety or restless that you have been moving around a lot more than usual: not at all 9. Thoughts that you would be better off or of hurting yourself in some way: not at all Total score: 4 Depression Screening Interpretation: Negative Depression Screening Done: Yes 50385 - PHQ-9 Billing: Yes Source: Developed by Drs. Jaime Pineda, Katarina Sahu, Luis Flores and colleagues, with an educational yaa from [employer]. Thrive Questionnaire Date Thrive assessed: 01/10/24 I am a: Patient What is your living situation today?: I have a steady place to live Within the past 12 months, did the food you bought not last and you didn't have the money to get more?: I choose not to answer this question Within the past 12 months, did you worry whether your food would run out before you got money to buy more?: I choose not to answer this question Do you have trouble paying for medicines?: No Do you have trouble getting transportation to medical appointments?: No Do you have trouble paying your heating and electricity bill?: I choose not to answer this question Do you have trouble taking care of your child, family member or friend?: I choose not to answer this question Do you have trouble with day-to-day activities such as bathing, preparing meals, shopping, managing finances, etc.?: No Are you currently unemployed and looking for a job?: No Are you interested in more education?: No Please select the resources that you would like help with: None Currently or been in a relationship where the following occur: I choose not to answer THRIVE Score: 0 VENU-7 AMB Questionnaire VENU-7 Date VENU - 7 assessed: 09/02/23 Source: Developed by Drs. Jaime Pineda, Katarina Sahu, Luis Flores and colleagues, with an educational yaa from [employer]. Review of Systems Const Denies fever(s) and Denies headache(s) Eyes Denies change in vision ENT Denies dizziness, Denies headache(s), Denies nasal congestion, Denies nasal discharge and Denies sore throat Card Denies chest pain, Denies lightheadedness, Denies palpitations and Denies dyspnea Resp Denies chest congestion, Denies cough, Denies dyspnea and Denies wheezing GI Denies abdominal pain, Denies change in bowel habits and Denies heartburn Denies hematuria, Denies difficulty urinating, Denies dysuria, Denies urinary frequency and Denies urinary urgency Musc Reports as per HPI Neuro Denies dizziness and Denies headache(s) Endo Denies polydipsia, Denies polyuria and Denies palpitations Rodolfo/Lymph Denies easy bruising Aller/Immun Denies seasonal rhinorrhea and Denies wheezing Physical exam (Primary Care) Vital Signs: Last Vital Signs Pulse 87 01/10/24 12:20 BP 124/80 01/10/24 12:20 Pulse Ox 98 01/10/24 12:20 Oxygen Delivery Method Room Air 01/10/24 12:20 BMI result Body Mass Index 41.3 Tobacco/Smoking Status: Tobacco use Status Tobacco use date assessed 01/10/24 01/10/24 12:21 Patient Tobacco Use Status Former Tobacco user 01/10/24 12:21 e-Cigarette/Vaping Use Currently Using 01/10/24 12:21 PHQ-9: PHQ-9 Score PHQ-9: Total score 4 01/10/24 12:48 Depression Screening Interpretation: Negative Thrive Assessment: Date of Thrive Assessment Date Thrive assessed 01/10/24 01/10/24 12:21 Currently or been in a relationship where the following occur: I choose not to answer Const General: cooperative and no acute distress Orientation/consciousness: patient oriented x3 HENMT Head: Yes normal to inspection and Yes normocephalic Ears: hearing grossly normal bilaterally and TM's normal bilaterally General nose exam: Normal external nose present Mouth: Normal oral and palatal mucosa present Eyes General: appearance normal, both eyes and all related structures Sclerae: sclerae normal Pupils: Equal, round and reactive pupils present EOM: EOMs intact bilaterally Direct Ophthalmoscopy: normal light reflex Neck Neck: Yes normal visual inspection, Yes full ROM and Yes no lymphadenopathy Resp Effort & Inspection: normal respiratory effort Auscultation: clear to auscultation bilaterally Cardio Rate: regular rate Rhythm: regular rhythm Heart sounds: S1 normal heart sound present and S2 normal heart sound present GI Inspection: Yes normal to inspection Auscultation: normal bowel sounds Rectal Exam - Male: Yes deferred Back/Spine/Pelvis Thoracic/Lumbar Spine: straight leg raise negative bilaterally and paraspinal muscle tenderness bilaterally in the lower lumbar Skin General skin exam: no rashes or lesions noted Neuro General: patient oriented x3 Cranial nerves: Yes CN's II-XII intact bilaterally and Yes Equal, round and reactive pupils present Cognition (Neuro): normal cognition Gait exam (Neuro): Normal gait present Motor exam (neuro): 5/5 motor strength present throughout Romberg Test: Negative Extrem Other: Crepitus in both knees noted Coding Level of Care Code Est Pt Level 4 (38705) Diagnoses Morbid obesity E66.01 Piriformis syndrome of both sides G57.03 History of prediabetes Z87.898 Dyslipidemia E78.5 Assessment & Plan Assessment & Plan (1) Morbid obesity: Code(s): E66.01 - Morbid (severe) obesity due to excess calories Category: Medical Plan: Continue with wegovy at the same dose of 0.25 mg injected subcutaneously once a week. Reinforced importance of following healthy eating habits and getting some form of exercise. Referred to nurse navigator for dietary guidance (2) Piriformis syndrome of both sides: Code(s): G57.03 - Lesion of sciatic nerve, bilateral lower limbs Category: Medical Plan: Referred to pain clinic for further evaluation management (3) History of prediabetes: Comment: Patient has history of prediabetes. Metformin controlled in office today 5.4 patient will have metformin changed to extended release formulation due to history of diarrhea. Code(s): Z87.898 - Personal history of other specified conditions Category: Medical Plan: Advised to get fasting labs done already ordered (4) Dyslipidemia: Code(s): E78.5 - Hyperlipidemia, unspecified Category: Medical Plan: Patient advised to get fasting lipid levels done already ordered Orders: Orders Aspartate Amino Transferase 12/24/23 E66. - Morbid (severe) obesity due to excess calories, E78.5 - Hyperlipidemia, unspecified, Z87.898 - Personal history of other specified conditions Lipid Panel 12/24/23 E66. - Morbid (severe) obesity due to excess calories, E78.5 - Hyperlipidemia, unspecified, Z87.898 - Personal history of other specified conditions Alanine Aminotransferase 12/24/23 E66. - Morbid (severe) obesity due to excess calories, E78.5 - Hyperlipidemia, unspecified, Z87.898 - Personal history of other specified conditions Basic Metabolic Panel Fasting 12/24/23 E66. - Morbid (severe) obesity due to excess calories, E78.5 - Hyperlipidemia, unspecified, Z87.898 - Personal history of other specified conditions TSH reflex Free T4 12/24/23 E66. - Morbid (severe) obesity due to excess calories, E78.5 - Hyperlipidemia, unspecified, Z87.898 - Personal history of other specified conditions Referrals Pain Management Referral G57.03 - Lesion of sciatic nerve, bilateral lower limbs Medications: New omega-3 acid ethyl esters (Lovaza) 1 cap PO DAILY 60 caps 5RF
== END 2024-01-10 14:15 | disposition home or self-care (01) ==
LOC: HO.HMCC 12:19
PROVIDERS: PCP Internal Medicine; Visit Provider Internal Medicine
DX: G57.03 Lesion of sciatic nerve, bilateral lower limbs (principal); E66.01 Morbid (severe) obesity due to excess calories; Z68.41 Body mass index [BMI] 40.0-44.9, adult; Z87.898 Personal history of other specified conditions; E78.5 Hyperlipidemia, unspecified

== ENCOUNTER → 2024-01-10 12:18 | Outpatient (BNVA) | payer OTHER, SELFPAY | PROVIDERS: PCP Internal Medicine; Visit Provider Internal Medicine | DX: E66.01 Morbid (severe) obesity due to excess calories (principal); G57.03 Lesion of sciatic nerve, bilateral lower limbs; E78.5 Hyperlipidemia, unspecified; Z87.898 Personal history of other specified conditions | CPT/HCPCS: 96127; 99212 ==

== ENCOUNTER 2024-01-16 15:25 | Outpatient (AMB) | payer OTHER, SELFPAY ==
[2024-01-16 15:35] VITALS: BP 118/80; PULSE 95; TEMP 36.7; O2SAT 98; BMI 40.8
--- NOTE | 2024-01-16 15:35 | AM.OFFWIN_ITS ---
Intake Vital Signs 01/16/24 15:35 Height 5 ft 9 in Weight 276 lb BMI 40.8 BP 118/80 Blood Pressure Location Rt brachial Position Sitting Pulse 95 Pulse Source Pulse Oximeter Temp 98.0 F Temp Source Oral Pulse Oximetry (%) 98 Oxygen Delivery Method Room Air Intake Visit Reasons: EP abdominal pain, blood in urine Intake Note: Pt is here today c/o abd discomfort and blood in his urine x2days Patient Tobacco Use Status: Former Tobacco user Allergies No Known Allergies Allergy (Verified 01/16/24 15:41) HPI EP abdominal pain, blood in urine HPI Details This note is constructed using voice recognition software. While every effort has been made to ensure accuracy, electromechanical assembly technician errors may have been included. The patient is a 38 year old male who presents to the clinic today with blood in urine and left testicle pain for the past. 2 days. He notes he has had similar in the past and has been treated with antibiotics with good effect. He notes that he started with pain in the posterior left testicle, in the past day or so, with the onset if the blood in the urine. He does follow with urologist, but did not contact them for this. He is sexually active, single partner. He denies any other discharge from the penis, any penile lesions. He denies fever, chills. [facility] Medical History (Updated 01/10/24 @ 12:58 by Gayathri Schaeffer MD) Dyslipidemia Piriformis syndrome of both sides Morbid obesity No known health problems Family History Maternal Uncle Substance use disorder Mental health disorder Paternal Uncle Substance use disorder Father Substance use disorder Social History Housing: House Alcohol intake: current Alcohol intake frequency: a few times a week Patient Tobacco Use Status: Former Tobacco user e-Cigarette/Vaping Use: Currently Using service: No Current occupational status: employed Current occupation: [employer] Cognitive needs: No Hearing needs: No Vision needs: Yes Review of Systems Const All systems reviewed & are unremarkable except as noted in HPI and below Physical Exam Vital Signs: Last Vital Signs Temp 98.0 F 01/16/24 15:35 Pulse 95 01/16/24 15:35 BP 118/80 01/16/24 15:35 Pulse Ox 98 01/16/24 15:35 Oxygen Delivery Method Room Air 01/16/24 15:35 BMI result Body Mass Index 40.8 Const General: cooperative, healthy appearing, comfortable, no acute distress and well developed Orientation/consciousness: patient oriented x3 Limitations: no limitations Resp Effort & Inspection: normal respiratory effort and able to speak in complete sentences Penis: normal penis Scrotum: no masses Testes: epididymal tenderness (With inflammation) on the left Skin General skin exam: no rashes or lesions noted Neuro General: patient oriented x3 Results AMB Urinalysis, Automated UA Leukoctes 125 Rayo/uL Last Edit by Mary Tamayo CMA on 01/16/24 15:44 UA Nitrite Positive Last Edit by Mary Tamayo CMA on 01/16/24 15:44 UA Urobilinogen 1 mg/dL Last Edit by Mary Tamayo CMA on 01/16/24 15:44 UA Protein 100 mg/dL Last Edit by Mary Tamayo CMA on 01/16/24 15:44 UA pH 5.5 Last Edit by Mary Tamayo CMA on 01/16/24 15:44 UA Blood 200 Angel/uL Last Edit by Mary Tamayo CMA on 01/16/24 15:44 UA Specific Beatrice 1.030 Last Edit by Mary Tamayo CMA on 01/16/24 15:44 UA Ketone Positive Last Edit by Mary Tamayo CMA on 01/16/24 15:44 UA Bilirubin 0 mg/dL Last Edit by Mary Tamayo CMA on 01/16/24 15:44 UA Glucose 0 mg/dL Last Edit by Mary Tamayo CMA on 01/16/24 15:44 Results Reviewed Results Reviewed: Laboratory Last Values Urine pH (Auto) 5.5 01/16/24 15:42 Specific Beatrice (Auto) 1.030 01/16/24 15:42 Urine Protein (Auto) 100 mg/dL 01/16/24 15:42 Glucose (UA)(Auto) 0 mg/dL 01/16/24 15:42 Urine Ketones (Auto) Positive 01/16/24 15:42 Urine Blood (Auto) 200 Angel/uL 01/16/24 15:42 Urine Nitrite (Auto) Positive 01/16/24 15:42 Urine Bilirubin (Auto) 0 mg/dL 01/16/24 15:42 Urine Urobilinogen (Auto) 1 mg/dL 01/16/24 15:42 Leukocyte Esterase (Auto) 125 Rayo/uL 01/16/24 15:42 Assessment & Plan Assessment & Plan (1) Epididymitis: Code(s): N45.1 - Epididymitis Plan: Antibiotics sent to requested pharmacy. Advised patient to follow up with worsening symptoms or failure to resolve. Given hematuria, additionally advised to follow up with the Urology. Plan See above for full details and plan. Orders: Orders AMB Urinalysis Automated Today Z13.9 - Encounter for screening, unspecified Medications: New sulfamethoxazole-trimethoprim 800-160 mg (Bactrim DS) 1 tab PO BID 10 days 20 tabs 0RF Coding Level of Care Code Est Pt Level 3 (37233) Diagnoses Epididymitis N45.1
== END 2024-01-16 16:50 | disposition home or self-care (01) ==
PROVIDERS: PCP Internal Medicine; Visit Provider Registered Nurse
DX: N45.1 Epididymitis (principal); Z13.9 Encounter for screening, unspecified

== ENCOUNTER → 2024-01-16 15:25 | Outpatient (BNVA) | payer OTHER, SELFPAY | PROVIDERS: PCP Internal Medicine; Visit Provider Registered Nurse | DX: N45.1 Epididymitis (principal); R10.9 Unspecified abdominal pain | CPT/HCPCS: 81003; 99212 ==

== ENCOUNTER 2024-01-20 13:10 | Outpatient (AMB) | payer OTHER, SELFPAY ==
--- NOTE | 2024-01-20 13:23 | MHC.OFFVIS ---
Vital Signs 01/20/24 13:24 Height 5 ft 9 in Weight 277 lb BMI 40.9 BP 127/85 Blood Pressure Location Lt brachial Position Sitting Pulse 90 Pulse Source Pulse Oximeter Pulse Oximetry (%) 96 Oxygen Delivery Method Room Air Intake Visit Reasons: Lesion of Sciatic Nerve, Bilateral Lower Limbs Allergies No Known Allergies Allergy (Verified 01/20/24 13:24) Medication List - Last Reconciled 01/20/24 by Mari Rock albuterol sulfate 90 mcg/actuation 2 puffs inhalation Q6H PRN atorvastatin 80 mg PO DAILY omega-3 acid ethyl esters (Lovaza) 1 cap PO DAILY pantoprazole 40 mg PO DAILY sulfamethoxazole-trimethoprim 800-160 mg (Bactrim DS) 1 tab PO BID 10 days tadalafil (Cialis) 5 mg PO DAILY 90 days tadalafil 20 mg PO DAILY PRN testosterone cypionate mg IM Wegovy (semaglutide (weight loss)) 0.25 mg (0.5 mL) subcut QWEEK NS HPI Comments Details: Ishan is a very pleasant 38-year-old male who presents to the office today for evaluation and management of his chronic back pain Patient has been suffering this pain for many years, he reports that has been progressively getting worse over the last 2 years He attributes this worsening pain to weight gain and sleeping on a poor mattress while being away from home Endorses midline lower back pain, right worse than left. Denies radiation of the pain down either lower extremity. Denies numbness, weakness, tingling of either lower extremity Denies inciting injury, fall, trauma He has previously taken Tylenol, meloxicam without improvement No relief with chiropractic intervention Denies recent x-rays were attempts at physical therapy Denies history of back surgeries or previous injections to the back Pain today is rated as a 6/10, constant throughout the day and at night. Reports feels very stiff in the morning when he wakes up In terms of muscle damage condition is described as aching, spasming, tiring, shocking, throbbing Pain is negatively impacting patient's enjoyment of life, general activity, mood, normal work, recreational activities, sleep and walking Denies implantable devices, pacemaker or defibrillator Denies current use of anticoagulants [facility] Medical History (Updated 01/20/24 @ 13:54 by Elizabeth Allan, BUILDING SURVEYOR, IP COUNSEL) Dyslipidemia Piriformis syndrome of both sides Morbid obesity No known health problems Family History Maternal Uncle Substance use disorder Mental health disorder Paternal Uncle Substance use disorder Father Substance use disorder Social History Housing: House Alcohol intake: current Alcohol intake frequency: a few times a week Patient Tobacco Use Status: Former Tobacco user e-Cigarette/Vaping Use: Currently Using service: No Current occupational status: employed Current occupation: [employer] Cognitive needs: No Hearing needs: No Vision needs: Yes Review of Systems Const All systems reviewed & are unremarkable except as noted in HPI and below Physical Exam Vital Signs: Last Vital Signs Pulse 90 01/20/24 13:24 BP 127/85 01/20/24 13:24 Pulse Ox 96 01/20/24 13:24 Oxygen Delivery Method Room Air 01/20/24 13:24 BMI result Body Mass Index 40.9 General: awake, alert, oriented. Answers questions appropriately. Fully engaged in examination. Skin: warm, dry, intact HEENT: Normocephalic. Hearing intact. Cardiac: External chest normal in appearance. Respiratory: No cough, audible wheezing or stridor. Abdomen: without gross distension. MS: No obvious swelling or deformities. Able to stand on bilateral tiptoes and bilateral heels.? Able to transition from sit to stand unassisted. Ambulates with bilaterally normal heel strike and toe off Facet loading positive SLR negative bilaterally Nontender over bilateral PSIS Tenderness over midline lumbar vertebrae and lumbar paraspinal muscles Pain with lumbar extension at 10 degrees, pain with forward flexion at 60 degrees Bilateral lower extremity strength 5/5 Neurological: Oriented to person, place, time and situation. Thought process intact. No gait abnormalities appreciated. Psychiatric: Appropriate mood and affect. Good judgment and insight. Assessment & Plan Assessment & Plan (1) Lumbar spondylosis: Code(s): M47.816 - Spondylosis without myelopathy or radiculopathy, lumbar region Category: Medical (2) Thoracic back pain: Code(s): M54.6 - Pain in thoracic spine Category: Medical (3) Myofascial low back pain: Code(s): M54.50 - Low back pain, unspecified Category: Medical Plan X-rays ordered for evaluation Order placed for PT eval and treat Methocarbamol 500 mg p.o. 3 times daily as needed Diclofenac 50 mg p.o. twice daily. Patient advised on cautions for use If no improvement NSAIDs physical therapy will plan for fluoroscopy guided diagnostic L3-L4 DR L5 medial branch blocks with local anesthetic versus sprint PNS trial. All questions and concerns were answered, patient agrees to the plan. Follow up after PT, sooner if needed Orders: Orders XR lumbar spine 4V min Today M47.816 - Spondylosis without myelopathy or radiculopathy, lumbar region PT Evaluation and Treatment Today M47.816 - Spondylosis without myelopathy or radiculopathy, lumbar region, M54.50 - Low back pain, unspecified, M54.6 - Pain in thoracic spine XR thoracic spine 3V Today M54.6 - Pain in thoracic spine Medications: New methocarbamol No driving while taking this medication. Do no take with alcohol or other DIGITAL ENGINEER Depressants 500 mg PO TID PRN 90 tabs 1RF muscle spasm diclofenac potassium Take with food, do not take with any other nonsteroidal anti-inflammatory medications 50 mg PO BID 60 tabs 1RF Coding Level of Care Code New Pt Level 4 (88660) Complex EM visit Add On G2211 Diagnoses Lumbar spondylosis M47.816 Thoracic back pain M54.6 Myofascial low back pain M54.50
[2024-01-20 13:24] VITALS: BP 127/85; PULSE 90; O2SAT 96; BMI 40.9
== END 2024-01-20 13:54 | disposition home or self-care (01) ==
PROVIDERS: PCP Internal Medicine; Referring Provider Internal Medicine; Visit Provider Registered Nurse Emergency
DX: M47.816 Spondylosis without myelopathy or radiculopathy, lumbar region (principal); M54.6 Pain in thoracic spine; M54.50 Low back pain, unspecified
CPT/HCPCS: 99204; G2211

== ENCOUNTER → 2024-01-20 13:10 | Outpatient (BNVA) | payer OTHER, SELFPAY | PROVIDERS: PCP Internal Medicine; Referring Provider Internal Medicine; Visit Provider Registered Nurse Emergency | DX: M47.816 Spondylosis without myelopathy or radiculopathy, lumbar region (principal); M54.6 Pain in thoracic spine; M54.50 Low back pain, unspecified | CPT/HCPCS: 99202 ==

== ENCOUNTER 2024-02-02 13:58 | Outpatient (RCR) | payer OTHER, SELFPAY ==
--- NOTE | 2024-02-02 14:51 | MHC.PT.EP ---
[facility] [place] Office [place] Office [place] Office [address] Jamee Perkins [address] [phone] F: [phone] F: [phone] F: [phone] F: [phone] Physical Therapy Plan of Care Date of Evaluation: 02/02/24 Date of Surgery: n/a Diagnosis: thoracic back pain lumbar spondylosis Assessment: Patient is a 38 year old male presenting to PT with complaints of pain in back pain. Pt reports onset of pain began worsening about 2 years ago due to insidious onset. He presents today with impairments in pain, ROM, hip strength, core strength, posture. 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 Pt expresses alf goal of reducing pain, and is motivated to work towards this in PT. Clinical presentation today is most consistent with signs and sx associated with back pain and pt will benefit from skilled PT 2 week x 4 weeks to address the following problems and impairments noted upon evaluation: pain, ROM, hip strength, core strength, posture. These problems limit the patient with the following functional activities: work, ADLs, standing. The prescribed treatment plan of care is medically necessary. Co-morbidities of none were identified and taken into considerations of plan of care. Pt was educated on HEP, role of PT, prognosis, POC. Frequency and Duration: The patient will be seen 2 x week x 4 weeks Short Term Goals: Pt will demonstrate ability to move through available lumbar ROM with min to no pain in 2 weeks. Pt will demonstrate improved hip MMT strength by 1/3 grade in 2 weeks. Wrecking Mechanic Goals: Pt will demonstrate improved Al score by 10% in 4 weeks for improved functional mobility. Pt will demonstrate ability to work a full work day with min to no pain in 4 weeks for return to PLOF. Pt will demonstrate ability to complete ADLs with min to no pain in 4 weeks for return to PLOF. Treatment Plan: Modalities to reduce pain, spasms and effusion. Manual therapy to restore motion and function. Therapeutic exercise to improve strength and flexibility. Neuromuscular re-education for posture and balance. Therapeutic activities to return to functional activities of daily living. Electronically signed by: Tonie Coy, PT, DPT, ATC Please sign and return to therapist. Thank you for your referral.
--- NOTE | 2024-02-28 13:28 | MHC.PT.DC ---
[facility] [place] Office [place] Office [place] Office [address]adiya Perkins [address] [phone] F: [phone] F: [phone] F: [phone] F: [phone] Physical Therapy Discharge Report Diagnosis: thoracic back pain lumbar spondylosis Date of Surgery: n/a Date of Evaluation: 02/02/24 Date of Discharge: 02/28/24 Treatments to Date: 1 Cancellations to Date: 0 No Shows to Date: 3 Discharge Status: Visit Non-compliance Discharge Summary: Pt has failed to comply with [facility] attendance policy and no showed 3 visits since start of care. Pt to be d/c per policy. Electronically signed by: Tonie Coy, PT, DPT, ATC Please sign and return to therapist. Thank you for your referral.
== END 2024-02-28 13:28 | disposition home or self-care (01) ==
LOC: HO.PTCHIC 13:58
PROVIDERS: PCP Internal Medicine; Visit Provider Registered Nurse Emergency
DX: M54.6 Pain in thoracic spine (principal); M47.816 Spondylosis without myelopathy or radiculopathy, lumbar region
CPT/HCPCS: 97110; 97161

== ENCOUNTER 2024-03-09 11:13 | Outpatient (AMB) | payer OTHER, SELFPAY ==
[2024-03-09 11:19] VITALS: BMI 40.9
--- NOTE | 2024-03-09 11:19 | A.OFFVIS_ITS ---
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 Intake Note: Patient presents for KAILA Allergies No Known Allergies Allergy (Verified 03/09/24 11:22) Medication List - Last Reconciled 03/09/24 by Kristin Chandra PA-C albuterol sulfate 90 mcg/actuation 2 puffs inhalation Q6H PRN atorvastatin 80 mg PO DAILY diclofenac potassium 50 mg PO BID methocarbamol 500 mg PO TID PRN omega-3 acid ethyl esters (Lovaza) 1 cap PO DAILY omeprazole 20 mg PO DAILY PRN sulfamethoxazole-trimethoprim 800-160 mg (Bactrim DS) 1 tab PO BID 10 days tadalafil (Cialis) 5 mg PO DAILY 90 days tadalafil 20 mg PO DAILY PRN testosterone cypionate mg IM Wegovy (semaglutide (weight loss)) 1 mg (0.5 mL) subcut QWEEK NS HPI Comments Details: 39 year old male referred to us for evaluation of sleep by his PCP. He has been very tired for the past 6mos, his complaints of his snoring, she wakes him up at night when he stops breathing. 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 He denies headaches, vision changes and balance or gait difficulties. He feels dizzy when changing positions from sleeping down flat to getting up to stand, he gets up slowly, will monitor BP with PCP. He goes to bed at 10pm and gets up 3-4 times a night to use the bathroom, wakes up at 7am feeling exhausted. Denies RLS, and abnormal sleep behaviors, in the past he did have auditory hallucinations when he was under stress and could not sleep through the night. Has pain bilaterally on the soles of his feet which is better now with Wegovy use. His A1c and blood sugar is managed by PCP, on Wegovy 1x subcut/ week. Mood is irritable, due to fatigue, he has a CPAP machine but the reservoir doesn't fit properly, and he has difficulty with use. Diet is okay, takes omeprazole prn, when acid reflux is terrible. His Labs in Dec 2023 B12, B6, TSH are normal, Vit D is low. BMI is 40, he is seeing [facility] management. Exercise tends to be difficult but plans to start with a pily, is currently walking. [facility] Medical History Dyslipidemia Piriformis syndrome of both sides Morbid obesity No known health problems Family History Maternal Uncle Substance use disorder Mental health disorder Paternal Uncle Substance use disorder Father Substance use disorder Social History Housing: House Alcohol intake: current Alcohol intake frequency: a few times a week Patient Tobacco Use Status: Former Tobacco user e-Cigarette/Vaping Use: Currently Using service: No Current occupational status: employed Current occupation: [employer] Cognitive needs: No Hearing needs: No Vision needs: Yes Review of Systems Const All systems reviewed & are unremarkable except as noted in HPI and below Neuro Reports Abnormal speech present Physical Exam Vital Signs: BMI result Body Mass Index 40.9 Const General: cooperative, comfortable and no acute distress Nutritional Appearance: obese (BMI 40.9) morbidly obese Orientation/consciousness: patient oriented x3 HEENT Face and sinus: Yes face symmetric Teeth and gingiva: other (Mallampti score is 4) Eyes Pupils: Equal, round and reactive pupils present Neck Neck: Yes full ROM and Yes supple Resp Effort & Inspection: normal respiratory effort and able to speak in complete sentences Neuro General: patient oriented x3 and moves all extremities Cranial nerves: Yes CN's II-XII intact bilaterally, Yes Facial sensation intact/muscles of mastication intact, Yes Equal, round and reactive pupils present, Yes Normal accommodation reflex present, Yes Bilaterally intact EOM present, Yes Nystagmus not present, Yes Normal facial strength present, Yes Midline tongue present, Yes Symmetric palate elevation present, Yes Ability to bilaterally rotate head present and Yes Ability to bilaterally elevate shoulders present Cognition (Neuro): normal cognition Speech: Abnormal speech present Motor exam (neuro): 5/5 motor strength present throughout and Normal motor muscle tone present throughout Deep tendon reflexes (DTR's): Right triceps reflex intensity grade: 2+, Left triceps reflex intensity grade: 2+, Rt Biceps (C5, C6): 2+, Left biceps reflex intensity grade: 2+, Right brachioradialis reflex intensity grade: 2+, Left brachioradialis reflex intensity grade: 2+, Right patellar reflex intensity grade: 2+ and Left patellar reflex intensity grade: 2+ Coordination: [id number] test normal Psych Appearance: grossly normal Mental Status: mental status grossly normal Speech and movement: Normal speech and movement present Affect: normal affect Attitude: cooperative Thought process: Normal thought process present Thought content: Normal thought content present Insight: Good insight present (Psych) Judgement: Good judgement present (Psych) Results Reviewed Results Reviewed: Labs Vit. D is low B12/ B6 and TSH is normal Cholesterol and A1c is well managed by Atorvastatin and Wegovy Assessment & Plan Assessment & Plan (1) Sleep difficulties: Code(s): G47.9 - Sleep disorder, unspecified Category: Medical (2) Loud snoring: Code(s): R06.83 - Snoring Category: Medical Plan HST to evaluate: Sleep Difficulties, snoring, gaspine, auditory hallucinations, bilateral feet soles, numbness, tingling and pain. Sleep hygiene provided, use melatonin 10mg as needed to help with falling asleep, and B6 for nerve pain. Mood irritability, exercise daily, walk, limit triggers which induce stressful situations, Vit D for irritable mood. Nocturia, limit fluids 2-4 hours prior to bedtime, do not drink caffeine close to bed time. Orders: Orders RT home sleep study Today G47.9 - Sleep disorder, unspecified, R06.83 - Snoring Medications: New cholecalciferol (vitamin D3) take one capsule daily by mouth 50 mcg PO DAILY 30 caps 1RF pyridoxine (vitamin B6) take one capsule by mouth at bedtime 100 mg PO 2XW 30 tabs 1RF G47.9 - Sleep disorder, unspecified, R06.83 - Snoring melatonin take one capsule by mouth as needed for difficulty falling asleep 10 mg PO BEDTIME PRN 30 caps 1RF sleep G47.9 - Sleep disorder, unspecified, R06.83 - Snoring Coding Level of Care Code New Pt Level 4 (65224) Diagnoses Sleep difficulties G47.9 Loud snoring R06.83 Time Spent (min) 40 Comment Evaluation of sleep Sleep Questionnaire Difficulty falling asleep: No Difficulty staying asleep?: Yes Number of arousals: 4-5 bathroom and sits up Snoring: Yes (loudly and drooling ) Witnessed apneas: Yes ( has to wake him up) Gasping arousals: Yes Nocturia: Yes GERD: Yes Vivid dreams: Yes Acting out dreams: No Abnormal behavior in sleep: No Abnormal movements in sleep: No Excessive daytime sleepiness: Yes Daytime naps: No Restless legs: Yes (soles pins and needles ) Hallucinations: Yes (Auditory- voices- like or son speaking to him) Sleep paralysis: No Drop attacks: No Sleep Study: Yes CPAP: Yes (But doesn't work right, reservoir is broken.)
== END 2024-03-09 12:09 | disposition home or self-care (01) ==
PROVIDERS: Absent Provider Physician Assistant Medical; PCP Internal Medicine; Visit Provider Physician Assistant Medical
DX: G47.9 Sleep disorder, unspecified (principal); R06.83 Snoring
CPT/HCPCS: 99204

== ENCOUNTER → 2024-03-09 11:13 | Outpatient (BNVA) | payer OTHER, SELFPAY | PROVIDERS: Absent Provider Physician Assistant Medical; PCP Internal Medicine; Visit Provider Physician Assistant Medical | DX: G47.33 Obstructive sleep apnea (adult) (pediatric) (principal); R06.83 Snoring; Z99.89 Dependence on other enabling machines and devices | CPT/HCPCS: 99202 ==

== ENCOUNTER 2024-06-05 12:50 | Outpatient (AMB) | payer OTHER, SELFPAY ==
[2024-06-05 13:04] VITALS: BP 128/76; PULSE 97; O2SAT 96; BMI 39.9
--- NOTE | 2024-06-05 13:04 | A.OFFVIS_ITS ---
Vital Signs 06/05/24 13:04 Height 5 ft 9 in Weight 270 lb BMI 39.9 BP 128/76 Blood Pressure Location Lt brachial Position Sitting Pulse 97 Pulse Source Pulse Oximeter Pulse Oximetry (%) 96 Oxygen Delivery Method Room Air Intake Visit Reasons: 3 mnts f/u appt Intake Note: Patient presents follow up KAILA. Allergies No Known Allergies Allergy (Verified 06/05/24 13:11) HPI Comments Details: 39 year old male referred to us for evaluation of sleep by his PCP. He has been very tired for the past 3 months and says his complaints of his snoring, she wakes him up at night when he stops breathing. 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 He denies headaches, vision changes and balance or gait difficulties. He is taking Phentermine 37.5mg for weight loss despite it making him very anxious. He feels dizzy when changing positions from sleeping down flat to getting up to stand, he gets up slowly, will monitor BP with PCP. He goes to bed at 10pm and gets up 3-4 times a night to use the bathroom, wakes up at 7am feeling exhausted. Denies RLS, and abnormal sleep behaviors, in the past he did have auditory hallucinations when he was under stress. 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 He is concerned about board / licensing exams which are coming up. He is unable to go to the gym and exercise as he has pain bilaterally in his shins/ and R. arm for bicep tendon rupture May 2024,he had PT and it did not help with the pain and scar tissue, which now causes cramps in the bicep. [facility] Medical History Obesity (BMI 30-39.9) Dyslipidemia Piriformis syndrome of both sides Morbid obesity No known health problems Surgical History No history of previous surgery Family History Maternal Uncle Substance use disorder Mental health disorder Paternal Uncle Substance use disorder Father No problems noted. Mother No problems noted. Son ADHD Social History Housing: House Alcohol intake: former Patient Tobacco Use Status: Former Tobacco user e-Cigarette/Vaping Use: Currently Using service: No Current occupational status: employed Current occupation: [employer] Cognitive needs: No Hearing needs: No Vision needs: Yes Review of Systems Neuro Reports Abnormal speech present Physical Exam Vital Signs: Last Vital Signs Pulse 97 06/05/24 13:04 BP 128/76 06/05/24 13:04 Pulse Ox 96 06/05/24 13:04 Oxygen Delivery Method Room Air 06/05/24 13:04 BMI result Body Mass Index 39.9 Const General: cooperative, comfortable and no acute distress Nutritional Appearance: obese (BMI 40.9) morbidly obese Orientation/consciousness: patient oriented x3 HEENT Face and sinus: Yes face symmetric Teeth and gingiva: other (Mallampti score is 4) Eyes Pupils: Equal, round and reactive pupils present Neck Neck: Yes full ROM and Yes supple Resp Effort & Inspection: normal respiratory effort and able to speak in complete sentences Neuro General: patient oriented x3 and moves all extremities Cranial nerves: Yes CN's II-XII intact bilaterally, Yes Facial sensation intact/ muscles of mastication intact, Yes Equal, round and reactive pupils present, Yes Normal accommodation reflex present, Yes Bilaterally intact EOM present, Yes Nystagmus not present, Yes Normal facial strength present, Yes Midline tongue present, Yes Symmetric palate elevation present, Yes Ability to bilaterally rotate head present and Yes Ability to bilaterally elevate shoulders present Cognition (Neuro): normal cognition Speech: Abnormal speech present Motor exam (neuro): 5/5 motor strength present throughout and Normal motor muscle tone present throughout Deep tendon reflexes (DTR's): Right triceps reflex intensity grade: 2+, Left triceps reflex intensity grade: 2+, Rt Biceps (C5, C6): 2+, Left biceps reflex intensity grade: 2+, Right brachioradialis reflex intensity grade: 2+, Left brachioradialis reflex intensity grade: 2+, Right patellar reflex intensity grade: 2+ and Left patellar reflex intensity grade: 2+ Coordination: [id number] test normal Psych Appearance: grossly normal Mental Status: mental status grossly normal Speech and movement: Normal speech and movement present Affect: normal affect Attitude: cooperative Thought process: Normal thought process present Thought content: Normal thought content present Insight: Good insight present (Psych) Judgement: Good judgement present (Psych) Assessment & Plan Assessment & Plan (1) Right arm pain: Code(s): M79.601 - Pain in right arm Category: Medical (2) Loud snoring: Code(s): R06.83 - Snoring Category: Medical (3) Sleep difficulties: Code(s): G47.9 - Sleep disorder, unspecified Category: Medical Plan R. arm pain due to bicep tendon rupture. Orthopedics referral. Fatigue HST Orders: Referrals Orthopedics Referral M79.601 - Pain in right arm Patient Instructions: Sleep Hygiene provided: set a scheduled bedtime and wake time to help regulate the circadian rhythm and balance the release of pituitary hormones. Sleep in a dark room, temperatures below 68 degrees, and no devices n bed. Limit caffeinated products 6 hours prior to bed, and limit fluids 2-4 hours prior to bed. Gentle night yoga, diffusing essential oils, and playing soft music can be relaxing. Coding Level of Care Code Est Pt Level 4 (44009) Diagnoses Right arm pain M79.601 Loud snoring R06.83 Sleep difficulties G47.9 Time Spent (min) 15
--- OUTSIDE RECORDS SUMMARY | 2024-06-05 15:31 | XMS_ITS | Clinical Summary ---
Author Organization [employer] Address [address] [place] [address] Care Team Providers Care Correctional Food Service Supervisor Name Role Phone Shreya Ace MD Primary Care Provider [phone] Allergies No known active allergies Medications cholecalciferol (Vitamin D-3) 50 MCG (1999) tablet Take 1 tablet by mouth at bed time. 10/19/2021 Active neomycin-bacitr acin-polymyxin (Neosporin) ointment use BID to affected areas 12/14/2021 Active testosterone enanthate (Xyosted) 75 MG/0.5ML solution auto-injector Inject under the skin once a week. Active Suboxone 2-0.5 MG per sublingual film DISSOLVE 2 FILMS UNDER THE TONGUE DAILY 04/19/2022 Active diclofenac (Cataflam) 50 MG tablet Take 1 tablet (50 mg) by mouth 2 times daily. 60 tablet 1 06/03/2022 Active cyclobenzaprine (Flexeril) 10 MG tablet Take 1 tablet (10 mg) by mouth at bedtime. 30 tablet 06/03/2022 Active omeprazole (PriLOSEC) [address] capsule TAKE ONE CAPSULE TWICE DAILY BEFORE MEALS 60 capsule 3 06/21/2022 Active Active Problems Problem Noted Date Diagnosed Date Primary hypertension 06/03/2022 Social History Tobacco Use Types Packs/Day Years Used Date Smoking Tobacco: Never Tobacco Cessation:Counseling Given: Not Answered Alcohol Use Standard Drinks/Week Comments Never 0 (1 standard drink = 0.6 oz pur e alcohol) Housing Stability Answer Date Recorded What is your housing situation today? I have itz rodriguez 07/29/[address] you li ve. Do you have problems with any of the following? None of the above 07/29/2023 Food Insecurity Answer Date Recorded Within the past 12 months, y ou worried that your food would run out before you got money to buy more: Never True 07/29/2023 Within the past 12 months,th e food you bought just didn't last and you didn't have enough money to get more: Never True Transportation Answer Date Recorded In the past 12 months, has l ack of transportation kept you from medical appts, meetings, work or from getting things needed for daily living? No 07/29/2023 Utilities Answer Date Recorded In the past 12 months, has t he electric, gas, oil or water company threatened to shut off services in your home? No 07/29/2023 Sex and Gender Information Value Date Recorded Sex Assigned at Male 01/11/2022 10:18 AM EDT Legal Sex Male 10:18 AM EDT Gender Identity Male 01/11/2022 10:18 AM EDT Sexual Orientation Straight 01/11/2022 10 :18 AM EDT Last Filed Vital Signs Vital Sign Reading Time Taken Comments Blood Pressure 139/101 06/03/2022 8:59 AM EDT Pulse 100 06/03/2022 8:59 AM EDT Temperature 36.4 ??C (97.5 ??F) 06/03/2022 8:59 AM ED T Respiratory Rate 20 06/03/2022 8:59 AM EDT Oxygen Saturation 99% 06/03/2022 8:59 AM EDT Inhaled Oxygen Concentration - - Weight 128 kg (283 lb) 06/03/2022 8:59 AM EDT Height 175.3 cm (5' 9 ) 06/03/2022 8:59 AM EDT Body Mass Index 41.79 06/03/2022 8:59 AM EDT Plan of Treatment Health Maintenance Due Date Last Done Comments Depression Screening 1985 HIV Screening 1985 Alcohol/Substance Use Screening 1997 Family Planning (PISQ) 02/04/2000 Hepatitis C Screening 2003 DTaP/Tdap/Td Vaccines (1 - Tdap) 02/04/2004 Hepatitis B Vaccines (1 of 3 - 19+ 3-dose series) 02/04/2004 COVID-19 Vaccine (1 - 2023-2 5 season) 2023 Influenza Vaccine (#1) 2023 SDOH Screening 07/28/2024 07/29/2023 Tobacco Screening 07/28/2024 07/29/2023 Lipid Panel 06/04/2027 06/03/2022, 02/19/2021 Zoster Vaccines (1 of 2) 2035 RSV Patients and Patients Aged 60 years or older (1 - 1-dose 75+ series) 02/04/2060 HIB Vaccines Aged Out No longer eligi ble based on patient's age to complete this topic HPV Vaccines Aged Out No longer eligi ble based on patient's age to complete this topic Hepatitis A Vaccines Aged Out No long er eligible based on patient's age to complete this topic IPV Vaccines Aged Out No longer eligi ble based on patient's age to complete this topic Meningococcal Vaccine Aged Out No princess zeeshan eligible based on patient's age to complete this topic Pneumococcal Vaccine: Pediatrics (0 to 5 Years) and At-Risk Patients (6 to 49) Years) Aged Out No longer eligible b ased on patient's age to complete this topic RSV under 20 months Aged Out No longe r eligible based on patient's age to complete this topic Rotavirus Vaccines Aged Out No longer eligible based on patient's age to complete this topic Procedures Procedure Name Priority Date/Time Associated Diagnosis Comments LIPID PANEL, STANDARD Routine 06/03/2022 9:55 AM EDT Primary hypertension from Last 3 Months or Most Recently Relevant to Health Maintenance Results * (ABNORMAL) Lipid Panel, Standard (06/03/2022 9:55 AM EDT) Cholesterol, Total 180 <200 mg/dL [facility] HDL Cholesterol 25(L) > OR = 40 mg/dL GLO [facility] Triglycerides 469(H) <150 mg/dL [facility] Comment: If a non-fasting specimen was collected, consider repeat triglyceride testing on a fasting specimen if clinically indicated. Flory et al. J. of Clin. Lipidol. 2015;9:129-169. LDL Cholesterol Ques [facility] Comment: LDL cholesterol not calculated. Triglyceride levels greater than 400 mg/dL invalidate calculated LDL results. Reference range: <100 Desirable range <100 mg/dL for primary prevention; ?? <70 mg/dL for patients with CHD or diabetic patients with > or = 2 CHD risk factors. LDL-C is now calculated using the Dale calculation, which is a validated novel method providing better accuracy than the Friedewald equation in the estimation of LDL-C. Milton SS et al. KEESHA. 2013;310(19): 2684-8066 (http://education.SyringeTech/faq/WFC677) Chol/HDLC Ratio 7.2(H) <5.0 (calc) [facility] Non-HDL Cholesterol 155(H) <130 mg/dL (calc) [facility] Comment: For patients with diabetes plus 1 major ASCVD risk factor, treating to a non-HDL-C goal of <100 mg/dL (LDL-C of <70 mg/dL) is considered a therapeutic option. Blood Venous blood specimen / Unknown 06/03/2022 9:55 AM EDT 06/03/2022 9:56 AM EDT Narrative [facility] - 06/04/2022 2:10 AM EDT FASTING:YES FASTING: YES Shreya Ace MD LAB BLOOD ORDERABLES Final Resul t [facility] [address], [place] [address] [employer] [place] [employer] 200 [place] [address] from Last 3 Months or Most Recently Relevant to Health Maintenance Insurance [employer] C3 Care Teams Correctional Food Service Supervisor Relationship Specialty Start Date End Date Shreya Ace MD [address] [place] [id number] PCP - General Family Medicine 06/27/19
--- OUTSIDE RECORDS SUMMARY | 2024-06-05 15:31 | XMS_ITS | Encounter Summary ---
Author Organization [employer] Address [address] [place] [address] Care Team Providers Care Court Stenographer Name Role Phone Shreya Ace MD Primary Care Provider [phone] Encounter Details Date Type Department Care Team (Late st Contact Info) Description 03/26/2022 Telephone [facility] [address] [place] [address] Shreya Ace MD [address] [place] [address] Social History Tobacco Use Types Packs/Day Years Used Date Smoking Tobacco: Never Assessed Sex and Gender Information Value Date Recorded Sex Assigned at Male 01/11/2022 10:18 AM EDT Legal Sex Male 10:18 AM EDT Gender Identity Male 01/11/2022 10:18 AM EDT Sexual Orientation Straight 01/11/2022 10 :18 AM EDT documented as of this encounter Plan of Treatment Not on file documented as of this encounter Visit Diagnoses Not on filedocumented in this encounter Care Teams Court Stenographer Relationship Specialty Start Date End Date Shreya Ace MD 230 [place] [address] PCP - General Family Medicine 06/27/19 documented as of this encounter
--- OUTSIDE RECORDS SUMMARY | 2024-06-05 15:31 | XMS_ITS | Encounter Summary ---
Author Organization [employer] Address [address] [place] [address] Care Team Providers Care Tunnel Man Name Role Phone Shreya Ace MD Primary Care Provider [phone] Encounter Details Date Type Department Care Team (Late st Contact Info) Description 06/16/2022 Telephone [facility] 230 [place], [place] [phone] Shreya Ace MD [address] [place], [place] [phone] Social History Tobacco Use Types Packs/Day Years Used Date Smoking Tobacco: Never Alcohol Use Standard Drinks/Week Comments Never 0 (1 standard drink = 0.6 oz pur e alcohol) Sex and Gender Information Value Date Recorded Sex Assigned at Male 01/11/2022 10:18 AM EDT Legal Sex Male 10:18 AM EDT Gender Identity Male 01/11/2022 10:18 AM EDT Sexual Orientation Straight 01/11/2022 10 :18 AM EDT COVID-19 Exposure Response Date Recorded In the last 10 days, have yo u been in contact with someone who was confirmed or suspected to have Coronavirus/COVID-19? No / Unsure 06/03/2022 8:54 AM EDT documented as of this encounter Plan of Treatment Not on file documented as of this encounter Visit Diagnoses Not on filedocumented in this encounter Care Teams Tunnel Man Relationship Specialty Start Date End Date Shreya Ace MD 230 [place], [place] [phone] PCP - General Family Medicine 06/27/19 documented as of this encounter
== END 2024-06-05 13:45 | disposition home or self-care (01) ==
LOC: HO.HSMS 12:51
PROVIDERS: PCP Internal Medicine; Visit Provider Physician Assistant Medical
DX: M79.601 Pain in right arm (principal); R06.83 Snoring; G47.9 Sleep disorder, unspecified
CPT/HCPCS: 99214

== ENCOUNTER → 2024-06-05 12:50 | Outpatient (BNVA) | payer OTHER, SELFPAY | PROVIDERS: PCP Internal Medicine; Visit Provider Physician Assistant Medical | DX: M79.601 Pain in right arm (principal); R06.83 Snoring | CPT/HCPCS: 99212 ==

== ENCOUNTER → 2024-06-12 13:40 | Outpatient (REF) | payer OTHER, SELFPAY ==
--- OUTSIDE RECORDS SUMMARY | 2024-06-12 16:13 | XMS_ITS | Clinical Summary ---
Author Organization [employer] Address [address] [place] [address] Care Team Providers Care Antisqueak Chalker Name Role Phone Shreya Ace MD Primary Care Provider [phone] Allergies No known active allergies Medications cholecalciferol [...] AM EDT) Cholesterol, Total 180 <200 mg/dL [facility] HDL Cholesterol 25(L) > OR = 40 mg/dL [facility] Triglycerides 469(H) <150 mg/dL [facility] Comment: If a non-fasting specimen was collected, consider repeat triglyceride testing on a fasting specimen if clinically indicated. Flory et al. J. of Clin. Lipidol. 2015;9:129-169. LDL Cholesterol Ques [place] Comment: LDL cholesterol not calculated. Triglyceride levels [...] LDL-C. Milton SS et al. KEESHA. 2013;310(19): 5564-2969 (http://education.Innovolt/faq/QSV071) Chol/HDLC Ratio 7.2(H) <5.0 (calc) [facility] Non-HDL Cholesterol 155(H) <130 mg/dL (calc) [facility] Comment: For patients with diabetes plus 1 major ASCVD risk factor, treating to a non-HDL-C goal of <100 mg/dL (LDL-C of <70 mg/dL) is considered a therapeutic option. Blood Venous blood specimen / Unknown 06/03/2022 9:55 AM EDT 06/03/2022 9:56 AM EDT Narrative [facility] - 06/04/2022 2:10 AM EDT FASTING:YES FASTING: YES Shreya Ace MD LAB BLOOD ORDERABLES Final Resul t [facility] [address], [place] [address] [employer] [place] [employer] 200 [place] [address] from Last 3 Months or Most Recently Relevant to Health Maintenance Insurance [employer] C3 Care Teams Antisqueak Chalker Relationship Specialty Start Date End Date Shreya Ace MD [address] [place] [id number] PCP - General Family Medicine 06/27/19
--- OUTSIDE RECORDS SUMMARY | 2024-06-12 16:13 | XMS_ITS | Encounter Summary ---
Author Organization [employer] Address [address] [place] [address] Care Team Providers Care Aviation Operations Specialist Name Role Phone Shreya Ace MD Primary Care Provider Encounter Details Date Type Department Care Team (Late st Contact Info) Description 03/26/2022 Telephone [facility] 230 [place] [address] Shreya Ace MD [address] [place] [address] Social History Tobacco Use Types Packs/Day Years [...] on filedocumented in this encounter Care Teams Aviation Operations Specialist Relationship Specialty Start Date End Date Shreya Ace MD 230 [place] [address] PCP - General Family Medicine 06/27/19 documented as of this encounter
--- OUTSIDE RECORDS SUMMARY | 2024-06-12 16:13 | XMS_ITS | Encounter Summary ---
Author Organization [employer] Address [address] [place] [address] Care Team Providers Care Strip Mill Operator Name Role Phone Shreya Ace MD Primary Care Provider [phone] Encounter Details Date Type Department Care Team (Late st Contact Info) Description 06/16/2022 Telephone [facility] 230 [place], [place] [phone] Shreya Ace MD [address] [place], [place] [phone] Social History Tobacco Use Types Packs/Day Years [...] on filedocumented in this encounter Care Teams Strip Mill Operator Relationship Specialty Start Date End Date Shreya Ace MD 230 [place], [place] [phone] PCP - General Family Medicine 06/27/19 documented as of this encounter
== END ==
LOC: HO.SL 13:40
PROVIDERS: PCP Internal Medicine; Visit Provider Physician Assistant Medical
DX: G47.30 Sleep apnea, unspecified (principal); R06.83 Snoring; G47.9 Sleep disorder, unspecified; R40.0 Somnolence
CPT/HCPCS: 95806

== ENCOUNTER → 2024-06-12 13:49 | Outpatient (BNV) | payer OTHER, SELFPAY | PROVIDERS: PCP Internal Medicine; Visit Provider Psychiatry & Neurology Neurology | DX: G47.33 Obstructive sleep apnea (adult) (pediatric) (principal) | CPT/HCPCS: 95806 ==

== ENCOUNTER 2024-07-16 13:56 | Outpatient (AMB) | payer OTHER, SELFPAY ==
--- NOTE | 2024-07-16 14:22 | MHC.OFFVIS ---
Vital Signs 07/16/24 14:23 Height 5 ft 9 in Weight 256 lb 2 oz BMI 37.8 Pulse 86 Pulse Source Pulse Oximeter Pulse Oximetry (%) 98 Oxygen Delivery Method Room Air Intake Visit Reasons: 2 mo follow up Intake Note: Patient presents follow up Sleep. wanted second opinion for orthopedics but only had original dr. Kraus No Known Allergies Allergy (Verified 03/21/25 09:41) HPI Comments Details: 39 year old male referred to us for evaluation of sleep by his PCP. HST completed 06/25/2024 RU is 57.2 OAI 33.2, Oxygen Nadirs to 77%. He has been very tired and says his complaints of his snoring, she wakes him up at night when he stops breathing. 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 He denies headaches, vision changes and balance or gait difficulties. He feels dizzy when changing positions, discussed use of Cialisis and monitor BP. He goes to bed at 10pm and gets up 2x for BR, wakes up at 7am and feels exhausted. Denies RLS, has knee pain and bilateral feet pain with pins and needles, has received cortisone shots in the past which helped. He has abnormal sleep behaviors in the past, hallucinations when under stress. He missed his appt to car pick up driver his HST equiptment as he was traveling and rescheduled to car pick up driver CPAP. He has anxiety about his licensing/board certification exam. He used to go to the gym, however now unable to and exercise due to pain in his shins bilaterally. R. arm bicep tendon rupture. May 2024,he had PT and it did not help with the pain and scar tissue, which now causes cramps in the bicep. [facility] Medical History (Updated 02/04/25 @ 00:07 by Gayathri Schaeffer MD) Mixed dyslipidemia Biceps tendon rupture Bilateral chronic knee pain Obesity (BMI 30-39.9) Surgical History No history of previous surgery Family History Maternal Uncle Substance use disorder Mental health disorder Paternal Uncle Substance use disorder Father No problems noted. Mother No problems noted. Son ADHD Social History Housing: House Alcohol intake: former Patient Tobacco Use Status: Former Tobacco user e-Cigarette/Vaping Use: Currently Using service: No Current occupational status: employed Current occupation: [employer] Cognitive needs: No Hearing needs: No Vision needs: Yes Review of Systems Neuro Reports Abnormal speech present Physical Exam Vital Signs: Last Vital Signs Pulse 86 07/16/24 14:23 Pulse Ox 98 07/16/24 14:23 Oxygen Delivery Method Room Air 07/16/24 14:23 BMI result Body Mass Index 37.8 Const General: cooperative, comfortable and no acute distress Nutritional Appearance: obese (BMI 40.9) morbidly obese Orientation/consciousness: patient oriented x3 HEENT Face and sinus: Yes face symmetric Teeth and gingiva: other (Mallampti score is 4) Eyes Pupils: Equal, round and reactive pupils present Neck Neck: Yes full ROM and Yes supple Resp Effort & Inspection: normal respiratory effort and able to speak in complete sentences Neuro General: patient oriented x3 and moves all extremities Cranial nerves: Yes Equal, round and reactive pupils present, Yes Normal accommodation reflex present, Yes Bilaterally intact EOM present, Yes Normal facial strength present, Yes Midline tongue present, Yes Ability to bilaterally rotate head present and Yes Ability to bilaterally elevate shoulders present Cognition (Neuro): normal cognition Speech: Abnormal speech present Motor exam (neuro): 5/5 motor strength present throughout and Normal motor muscle tone present throughout Psych Appearance: grossly normal Thought process: Normal thought process present Thought content: Normal thought content present Results Reviewed Results Reviewed: 06/25/2024 HST c/w severe KAILA AHI was 57 and oxygen nadirs to 77%. Start Cpap [id number]. Assessment & Plan Assessment & Plan (1) Obstructive sleep apnea: Comment: AHI is 57 and Oxygen Silas to 77% Code(s): G47.33 - Obstructive sleep apnea (adult) (pediatric) Category: Medical Plan: Start CPAP therapy and f/u for compliance in 3 months. A Wash mask, change filters and hoses as need. (2) Plantar fasciitis: Comment: PCP has referred to podiatry for eval. Code(s): M72.2 - Plantar fascial fibromatosis Category: Medical Plan: PT referral for bilateral plantar faciitis and heel pain. continue B6 100mg po daily (3) Biceps tendon rupture: Code(s): S46.219A - Strain of muscle, fascia and tendon of other parts of biceps, unspecified arm, initial encounter Category: Medical Qualifiers: Encounter type: subsequent encounter Laterality: right Qualified Code(s): S46.211D - Strain of muscle, fascia and tendon of other parts of biceps, right arm, subsequent encounter Plan: referral to [facility] surgeons for surgical consult. (4) Vitamin D deficiency: Comment: continue vit d daily Code(s): E55.9 - Vitamin D deficiency, unspecified Category: Medical Plan: Continue Vit D 50mcg po daily. Plan f/u in 3 months for KAILA compliance Will monitor for RLS at next visit. Orders: Orders PT Evaluation and Treatment 07/16/24 M72.2 - Plantar fascial fibromatosis Referrals Orthopedics Referral S46.219A - Strain of muscle, fascia and tendon of other parts of biceps, unspecified arm, initial encounter Patient Instructions: PT foot pain bilateral heels pain, f/u with PT. [facility] and orthopedic surgeons second opinion for /r. Bicep tendon tear. CPAP order is faxed [facility], f/u with appt to car pick up driver your CPAP and supplies. RLS start 400mg magnesium po daily at bedtime and B6 100mg po daily at bedtime. Coding Level of Care Code Est Pt Level 4 (41174) Diagnoses Obstructive sleep apnea G47.33 Plantar fasciitis M72.2 Rupture of right biceps tendon, subsequent encounter S46.211D Encounter type: subsequent encounter Laterality: right Vitamin D deficiency E55.9
[2024-07-16 14:23] VITALS: PULSE 86; O2SAT 98; BMI 37.8
--- OUTSIDE RECORDS SUMMARY | 2024-07-16 15:29 | XMS_ITS | Clinical Summary ---
Author Organization [employer] Address [address] [place] [address] Care Team Providers Care Hydroponics Grower Name Role Phone Shreya Ace MD Primary Care Provider [phone] Allergies No known active allergies Medications cholecalciferol [...] AM EDT) Cholesterol, Total 180 <200 mg/dL [facility] HDL Cholesterol 25(L) > OR = 40 mg/dL [employer] Triglycerides 469(H) <150 mg/dL [employer] Comment: If a non-fasting specimen was collected, consider repeat triglyceride testing on a fasting specimen if clinically indicated. Flory et al. J. of Clin. Lipidol. 2015;9:129-169. LDL Cholesterol Ques [facility] Comment: LDL cholesterol not calculated. Triglyceride levels [...] LDL-C. Milton SS et al. KEESHA. 2013;310(19): 7278-0644 (http://education.YellowKorner/faq/MML809) Chol/HDLC Ratio 7.2(H) <5.0 (calc) [employer] [facility] Non-HDL Cholesterol 155(H) <130 mg/dL (calc) [employer] Comment: For patients with diabetes plus 1 major ASCVD risk factor, treating to a non-HDL-C goal of <100 mg/dL (LDL-C of <70 mg/dL) is considered a therapeutic option. Blood Venous blood specimen / Unknown 06/03/2022 9:55 AM EDT 06/03/2022 9:56 AM EDT Narrative [facility] - 06/04/2022 2:10 AM EDT FASTING:YES FASTING: YES Shreya Ace MD LAB BLOOD ORDERABLES Final Resul t [facility] [address] [place] [address] [employer] [place] [employer] 200 [place] [address] from Last 3 Months or Most Recently Relevant to Health Maintenance Insurance [employer] C3 Care Teams Hydroponics Grower Relationship Specialty Start Date End Date Shreya Ace MD [address] [place] [id number] PCP - General Family Medicine 06/27/19
--- OUTSIDE RECORDS SUMMARY | 2024-07-16 15:29 | XMS_ITS | Encounter Summary ---
Author Organization [employer] Address [address] [facility] [address] [place] [address] Care Team Providers Care New Autos Delivery Driver Name Role Phone Shreya Ace MD Primary Care Provider [phone] Encounter Details Date Type Department Care Team (Late st Contact Info) Description 03/26/2022 Telephone [facility] 230 [place] [address] Shreya Ace MD [address] [place] [address] Social History Tobacco Use Types Packs/Day Years [...] on filedocumented in this encounter Care Teams New Autos Delivery Driver Relationship Specialty Start Date End Date Shreya Ace MD 230 [place] [address] PCP - General Family Medicine 06/27/19 documented as of this encounter
--- OUTSIDE RECORDS SUMMARY | 2024-07-16 15:30 | XMS_ITS | Encounter Summary ---
Author Organization [employer] Address [address] [place] [address] Care Team Providers Care Exam Proctor Name Role Phone Shreya Ace MD Primary Care Provider [phone] Encounter Details Date Type Department Care Team (Late st Contact Info) Description 06/16/2022 Telephone [facility] 230 [place], [place] [phone] Shreya Ace MD [address] [place], [place] [phone] Social History Tobacco Use Types Packs/Day Years [...] on filedocumented in this encounter Care Teams Exam Proctor Relationship Specialty Start Date End Date Shreya Ace MD 230 [place], [place] [phone] PCP - General Family Medicine 06/27/19 documented as of this encounter
== END 2024-07-16 14:59 | disposition home or self-care (01) ==
LOC: HO.HSMS 13:57
PROVIDERS: PCP Internal Medicine; Visit Provider Physician Assistant Medical
DX: G47.33 Obstructive sleep apnea (adult) (pediatric) (principal); M72.2 Plantar fascial fibromatosis; S46.211D Strain of muscle, fascia and tendon of other parts of biceps, right arm, subsequent encounter; E55.9 Vitamin D deficiency, unspecified
CPT/HCPCS: 99499

== ENCOUNTER 2024-09-27 09:49 | Outpatient (REF) | payer OTHER, MEDICAID, SELFPAY ==
[2024-09-27 13:31] LABS: Hemoglobin A1C 164.2868 umol/L; Total Hemoglobin (HGBA1C) 4521.8113 umol/L
[2024-09-27 13:33] LABS: Alanine Aminotransferase 45 U/L (0-40); Anion Gap 11 (12-20); Aspartate Amino Transferase 29 U/L (5-37); Blood Urea Nitrogen 19 mg/dL (9-16); Calcium 9.0 mg/dL (8.4-10.2); Carbon Dioxide 27 mmol/L (22-29); Chloride 106 mmol/L (96-108); Cholesterol 238 mg/dL (<200); Estimated Glomerular Filt Rate > 60; HDL Cholesterol 34 mg/dL (>40); Potassium 4.5 mmol/L (3.3-5.1); Sodium 139 mmol/L (135-145); Triglycerides 287 mg/dL (<150)
[2024-09-27 13:58] LABS: Appearance Urine Clear; Glucose Urine UA Negative (Negative); PH 6.5 (5.0-9.0); Specific Gravity - Urine 1.025 (1.005-1.025)
== END 2024-09-27 09:50 | disposition home or self-care (01) ==
LOC: HO.HMGCLDS 09:49
PROVIDERS: Nurse Practitioner Family; PCP Internal Medicine; Visit Provider Internal Medicine
DX: E66.01 Morbid (severe) obesity due to excess calories (principal); R30.0 Dysuria; E55.9 Vitamin D deficiency, unspecified; E78.5 Hyperlipidemia, unspecified; Z13.9 Encounter for screening, unspecified; Z87.898 Personal history of other specified conditions
CPT/HCPCS: 36415; 80048; 80061; 81003; 82306; 83036; 84207; 84450; 84460

== ENCOUNTER 2024-09-27 09:49 | Outpatient (AMB) | payer OTHER, SELFPAY ==
--- NOTE | 2024-09-27 10:12 | AM.OFFWIN_ITS ---
Intake Vital Signs 09/27/24 10:14 Height 5 ft 9 in Weight 259 lb BMI 38.2 BP 120/84 Blood Pressure Location Rt brachial Position Sitting Pulse 75 Pulse Source Pulse Oximeter Temp 98.0 F Temp Source Oral Pulse Oximetry (%) 97 Oxygen Delivery Method Room Air Intake Visit Reasons: EP UTI? Intake Note: presents with concern for a UTI Patient Tobacco Use Status: Former Tobacco user Allergies No Known Allergies Allergy (Verified 09/27/24 10:15) Do you need a note to return to daycare/school/sports/work: No HPI HPI Comments History of Present Illness Details 39 y/o Male patient who presents to the walk in clinic with c/o Right testicular Pain for 3 days. Reports Burning and pain with urination. Reports that pain radiates to the right Groin - describes pain as Sharp. Pain worse with walking and sitting. Denies any Trauma or injury to the area. Sexually active with - denies concerns for STIs. Denies Abdominal pain, diarrhea, constipation, fevers or chills. Denies any Penile discharge or rashes. Prior h/o Epididymitis left side with hematuria back in 2023, where he was treated with Abx. Patient an appointment with PCP Tuesday - he did not want to wait until then due to pain. [facility] Medical History (Updated 09/27/24 @ 11:21 by Colette Carlson NP) Dysuria Testicular pain, right Obesity (BMI 30-39.9) Dyslipidemia Piriformis syndrome of both sides Morbid obesity No known health problems Surgical History No history of previous surgery Family History Maternal Uncle Substance use disorder Mental health disorder Paternal Uncle Substance use disorder Father No problems noted. Mother No problems noted. Son ADHD Social History Housing: House Alcohol intake: former Patient Tobacco Use Status: Former Tobacco user e-Cigarette/Vaping Use: Currently Using service: No Current occupational status: employed Current occupation: [employer] Cognitive needs: No Hearing needs: No Vision needs: Yes Review of Systems Const All systems reviewed & are unremarkable except as noted in HPI and below Physical Exam Vital Signs: Last Vital Signs Temp 98.0 F 09/27/24 10:14 Pulse 75 09/27/24 10:14 BP 120/84 09/27/24 10:14 Pulse Ox 97 09/27/24 10:14 Oxygen Delivery Method Room Air 09/27/24 10:14 BMI result Body Mass Index 38.2 Const General: no acute distress; No comfortable Nutritional Appearance: obese Orientation/consciousness: patient oriented x3 General: Yes bladder normal to inspection and Yes bladder normal to palpation Male General Exam: Yes normal external exam, No ecchymosis, No edema, No erythema, No hernia, No inguinal lymphadenopathy and No Genital lesions present Penis: uncircumcised, not edematous, not erythematous and No Genital lesions present Meatus: meatus normal Scrotum: scrotum normal, no ecchymosis, not edematous, not erythematous, no inguinal hernias, no masses, no scrotal swelling and no varicoceles Testes: testicular lie normal, epididymides normal, no masses, no testicular mass, no testicular swelling, testicular tenderness on the right and other (Right groin tenderness - No inguinal hernia) Neuro General: patient oriented x3, gait normal and moves all extremities Psych Speech and movement: Normal speech and movement present Results AMB Urinalysis, Automated UA Leukoctes 0 Rayo/uL Last Edit by Kelly Adams MA on 09/27/24 10:58 UA Nitrite Negative Last Edit by Kelly Adams MA on 09/27/24 10:58 UA Urobilinogen 0.2 mg/dL Last Edit by Kelly Adams MA on 09/27/24 10:58 UA Protein 0 mg/dL Last Edit by Kelly Adams MA on 09/27/24 10:58 UA pH 6.0 Last Edit by Kelly Adams MA on 09/27/24 10:58 UA Blood 0 Angel/uL Last Edit by Kelly Adams MA on 09/27/24 10:58 UA Specific [place] 1.025 Last Edit by Kelly Adams MA on 09/27/24 10:5 8 UA Ketone Negative Last Edit by Kelly Adams MA on 09/27/24 10:58 UA Bilirubin 0 mg/dL Last Edit by Kelly Adams MA on 09/27/24 10:58 UA Glucose 0 mg/dL Last Edit by Kelly Adams MA on 09/27/24 10:58 Results Reviewed Results Reviewed: Laboratory Last Values Urine pH (Auto) 6.0 09/27/24 10:55 Specific [place] (Auto) 1.025 09/27/24 10:55 Urine Protein (Auto) 0 mg/dL 09/27/24 10:55 Glucose (UA)(Auto) 0 mg/dL 09/27/24 10:55 Urine Ketones (Auto) Negative 09/27/24 10:55 Urine Blood (Auto) 0 Angel/uL 09/27/24 10:55 Urine Nitrite (Auto) Negative 09/27/24 10:55 Urine Bilirubin (Auto) 0 mg/dL 09/27/24 10:55 Urine Urobilinogen (Auto) 0.2 mg/dL 09/27/24 10:55 Leukocyte Esterase (Auto) 0 Rayo/uL 09/27/24 10:55 Assessment & Plan Assessment & Plan (1) Testicular pain, right: Code(s): N50.811 - Right testicular pain Plan: DDx's: Torsion vs Hernia vs varicocele Ordered U/S Scrotum to r/o Hernia Diclofenac for pain relief. Sent Urine for culture and sensitivity. (2) Dysuria: Code(s): R30.0 - Dysuria Plan: Urinalysis negative today. Will send urine for C&S. Ordered Macrobid per patient's request. Orders: Orders AMB Urinalysis Automated Today Z13.9 - Encounter for screening, unspecified UA CC w/rflx Micro + Cult Today R30.0 - Dysuria US scrotum Today R30.0 - Dysuria Medications: New nitrofurantoin monohyd/m-cryst 100 mg (Macrobid) must administer with a meal/food 100 mg PO Q12H 10 caps 0RF 5 days R30.0 - Dysuria Refilled diclofenac potassium Take with food, do not take with any other nonsteroidal anti-inflammatory medications 50 mg PO BID 60 tabs 1RF N50.811 - Right testicular pain Coding Level of Care Code Est Pt Level 4 (86632) Diagnoses Testicular pain, right N50.811 Dysuria R30.0 Time Spent (min) 20
--- OUTSIDE RECORDS SUMMARY | 2024-09-27 10:12 | XMS_ITS | Clinical Summary ---
Author Organization [employer] Address [address] [place] [address] Care Team Providers Care Dispatcher Service Name Role Phone Shreya Ace MD Primary Care Provider [phone] Allergies No known active allergies Medications cholecalciferol (Vitamin D-3) 50 MCG (1999 UT) tablet Take 1 tablet by mouth at [...] 100 06/03/2022 8:59 AM EDT Temperature 36.4 C (97.5 F) 06/03/2022 8:59 AM EDT Respiratory Rate 20 06/03/2022 8:59 AM EDT Oxygen Saturation 99% 06/03/2022 8:59 AM EDT Inhaled Oxygen Concentration - - Weight 128 kg (283 lb) 06/03/2022 8:59 AM EDT Height 175.3 cm (5' 9 ) 06/03/2022 8:59 AM EDT Body Mass Index 41.79 06/03/2022 8:59 AM EDT Plan of Treatment Health Maintenance Due Date Last Done Comments Depression Screening 1985 HIV Screening 1985 Disability Screening 1985 Alcohol/Substance Use Screening 1997 Tobacco Screening 1997 Family Planning (PISQ) 02/04/2000 HPV Vaccines (1 - Male 3-dos e series) 02/04/2000 Hepatitis C Screening 2003 DTaP/Tdap/Td Vaccines (1 - Tdap) 02/04/2004 Hepatitis B Vaccines (1 of 3 - 19+ 3-dose series) 02/04/2004 COVID-19 Vaccine ( - 2023-2 5 season) 2023 SDOH Screening 07/28/2024 07/29/2023 Influenza Vaccine (#1) 2024 Lipid Panel 06/04/2027 06/03/2022, 02/19/2021 Zoster Vaccines [...] patient's age to complete this topic Meningococcal B Vaccine Aged Out No l onger eligible based on patient's age to complete this topic Meningococcal Vaccine Aged Out No princess zeeshan eligible based on patient's age to complete this topic Pneumococcal Vaccine: Pediatrics (0 to 5 Years) and At-Risk Patients (6 to 49) Years Aged Out No longer eligible b ased [...] AM EDT) Cholesterol, Total 180 <200 mg/dL [email or web address] HDL Cholesterol 25(L) > OR = 40 mg/dL [employer] Triglycerides 469(H) <150 mg/dL [email or web address] Comment: If a non-fasting specimen was collected, consider repeat triglyceride testing on a fasting specimen if clinically indicated. Flory et al. J. of Clin. Lipidol. 2015;9:129-169. LDL Cholesterol Ques t [employer] Comment: LDL cholesterol not calculated. Triglyceride levels greater than 400 mg/dL invalidate calculated LDL results. Reference range: <100 Desirable range <100 mg/dL for primary prevention; <70 mg/dL for patients with CHD or diabetic patients with > or = 2 CHD risk factors. LDL-C is now calculated using the Dale calculation, which is a validated novel method providing better accuracy than the Friedewald equation in the estimation of LDL-C. Milton SS et al. KEESHA. 2013;310(19): 8263-5511 (http://education.betaworks/faq/GLZ714) Chol/HDLC Ratio 7.2(H) <5.0 (calc) [email or web address] Non-HDL Cholesterol 155(H) <130 mg/dL (calc) [email or web address] Comment: For patients with diabetes plus 1 major ASCVD risk factor, treating to a non-HDL-C goal of <100 mg/dL (LDL-C of <70 mg/dL) is considered a therapeutic option. Blood Venous blood specimen / Unknown 06/03/2022 9:55 AM EDT 06/03/2022 9:56 AM EDT Narrative [facility] - 06/04/2022 2:10 AM EDT FASTING:YES FASTING: YES us Shreya Ace MD LAB BLOOD ORDERABLES Final Resul t [facility] [address], [place] [address] [facility] [place] [facility] [address] [place] [address] from Last 3 Months or Most Recently Relevant to Health Maintenance Insurance [employer] C3 Care Teams Dispatcher Service Relationship Specialty Start Date End Date Shreya Ace MD [address] [place] [id number] PCP - General Family Medicine 06/27/19
[2024-09-27 10:14] VITALS: BP 120/84; PULSE 75; TEMP 36.7; O2SAT 97; BMI 38.2
== END 2024-09-27 11:27 | disposition home or self-care (01) ==
PROVIDERS: PCP Internal Medicine; Visit Provider Nurse Practitioner Family
DX: N50.811 Right testicular pain (principal); R30.0 Dysuria; Z13.9 Encounter for screening, unspecified

== ENCOUNTER 2024-10-01 09:00 | Outpatient (AMB) | payer OTHER, SELFPAY ==
--- OUTSIDE RECORDS SUMMARY | 2024-10-01 09:14 | XMS_ITS | Clinical Summary ---
Author Organization [email or web address] Address [address] [place] [address] Care Team Providers Care Server Cashier Name Role Phone Shreya Ace MD Primary Care Provider [phone] Allergies No known active allergies Medications cholecalciferol [...] AM EDT) Cholesterol, Total 180 <200 mg/dL [facility] HDL Cholesterol 25(L) > OR = 40 mg/dL [employer] Triglycerides 469(H) <150 mg/dL [facility] Comment: If a non-fasting specimen was collected, consider repeat triglyceride testing on a fasting specimen if clinically indicated. Flory et al. J. of Clin. Lipidol. 2015;9:129-169. LDL Cholesterol Ques t [employer] Comment: LDL cholesterol not calculated. Triglyceride levels [...] LDL-C. Milton SS et al. KEESHA. 2013;310(19): 6563-0792 (http://education.[employer]/faq/BKB969) Chol/HDLC Ratio 7.2(H) <5.0 (calc) [facility] Non-HDL Cholesterol 155(H) <130 mg/dL (calc) [facility] Comment: For patients with diabetes plus 1 [...] ORDERABLES Final Resul t [facility] [address], [place] [address] [employer] [place] [employer] [address] [place] [address] from Last 3 Months or Most Recently Relevant to Health Maintenance Insurance [employer] C3 Care Teams Server Cashier Relationship Specialty Start Date End Date Shreya Ace MD [address] [place] [id number] PCP - General Family Medicine 06/27/19
[2024-10-01 09:31] VITALS: BP 108/72; PULSE 69; RESP 16; TEMP 36.7; O2SAT 98; BMI 38.7
--- NOTE | 2024-10-01 09:31 | A.OFFPC_ITS ---
Vital Signs 10/01/24 09:31 Height 5 ft 9 in Weight 262 lb BMI 38.7 BP 108/72 Blood Pressure Location Lt brachial Position Sitting Respiration 16 Pulse 69 Pulse Source Pulse Oximeter Temp 98.0 F Temp Source Oral Pulse Oximetry (%) 98 Oxygen Delivery Method Room Air Intake Visit Reasons: PE Intake Note: Pt is here today for his PE Accompanied by: Spouse Allergies No Known Allergies Allergy (Verified 10/01/24 09:41) Medication List - Last Reconciled 10/01/24 by Gayathri Schaeffer MD albuterol sulfate 90 mcg/actuation 2 puffs inhalation Q6H PRN cholecalciferol (vitamin D3) 50 mcg PO DAILY diclofenac potassium 50 mg PO BID melatonin 10 mg PO BEDTIME PRN nitrofurantoin monohyd/m-cryst 100 mg (Macrobid) 100 mg PO Q12H 5 days omega-3 acid ethyl esters (Lovaza) 1 cap PO DAILY omeprazole 20 mg PO DAILY PRN phentermine 37.5 mg PO DAILY 30 days pyridoxine (vitamin B6) 100 mg PO DAILY 60 days tadalafil (Cialis) 5 mg PO DAILY 90 days tadalafil 20 mg PO DAILY PRN Tobacco use date assessed: 10/01/24 Dental Screening Dental Screen Date: 10/01/24 Did you have a dental visit in the last 12 months?: No Did you have a dental problem in the last 6 months where you did not have access to dental care?: No Was dental information given to patient?: Patient has dentist HPI PE HPI Details -39-year-old male presenting today for h is physical exam. - has morbid obesity, with recent weight gain, reports a weight increase from 259 to 262 pounds after discontinuing phentermine, which he resumed recently due to the weight gain. - Hypogonadism: The patient has been venu gnosed with hypogonadism and was previously on testosterone therapy, which was discontinued three months ago due to elevated blood counts, was being seen at [facility] endocrine clinic. Now reports symptoms of sluggishness, low energy, and decreased libido since disc ontinuation. - Intermittent right testicular pain: e patient experienced testicular pain, which improved after taking Macrobid, although the urine test was clean. - An ultrasound was scheduled to rule ou t hernia, but the pain has since resolved. - Elevated triglycerides and liver enzym es: The patient has elevated triglycerides at 287 mg/dL and liver enzymes, which are lower than previous leve ls but still not at goal. He has been off atorvastatin for a while and reports inconsistent dietary habits recently. - Plantar fasciitis and bilateral knee p ain: The patient reports chronic plantar fasciitis and bilateral knee pain, previously managed with cortisone injections by supervisor melt house. He has flat feet and has tried custom orthotics without success. - he has obstructive Sleep apnea: The pa cristiano has been using CPAP for two months, which he believes has improved his symptoms. - Constipation: The patient reports inco nsistent bowel movements and has been advised to use fiber supplements and stool softeners. [facility] Medical History (Updated 10/04/24 @ 01:55 by Gayathri Schaeffer MD) Biceps tendon rupture Bilateral chronic knee pain Obesity (BMI 30-39.9) Dyslipidemia Surgical History No history of previous surgery Family History Maternal Uncle Substance use disorder Mental health disorder Paternal Uncle Substance use disorder Father No problems noted. Mother No problems noted. Son ADHD Social History Housing: House Alcohol intake: former Patient Tobacco Use Status: Former Tobacco user e-Cigarette/Vaping Use: Currently Using service: No Current occupational status: employed Current occupation: [employer] Cognitive needs: No Hearing needs: No Vision needs: Yes Questionnaire PHQ-9 Over the last 2 weeks, how often have you been bothered by any of the following problems? 1. Little interest or pleasure in doing things: not at all 2. Feeling down, depressed, or hopeless: not at all 3. Trouble falling or staying asleep, or sleeping too much: not at all 4. Feeling tired or having little energy: not at all 5. Poor appetite or overeating: not at all 6. Feeling bad about yourself - or that you are a failure or have let yourself or your family down: not at all 7. Trouble concentrating on things, such as reading the newspaper or watching television: not at all 8. Moving or speaking so slowly that other people could have noticed. Or the opposite - being so fidgety or restless that you have been moving around a lot more than usual: not at all 9. Thoughts that you would be better off or of hurting yourself in some way: not at all Total score: 0 Depression Screening Interpretation: Negative Depression Screening Done: Yes 79065 - PHQ-9 Billing: Yes Source: Developed by Drs. Jaime Pineda, Katarina Sahu, Luis Flores and colleagues, with an educational yaa from [employer]. Thrive Questionnaire Date Thrive assessed: 12/02/23 I am a: Patient What is your living situation today?: I have a steady place to live Within the past 12 months, did the food you bought not last and you didn't have the money to get more?: Sometimes True Within the past 12 months, did you worry whether your food would run out before you got money to buy more?: Sometimes True Do you have trouble paying for medicines?: No Do you have trouble getting transportation to medical appointments?: No Do you have trouble paying your heating and electricity bill?: No Do you have trouble taking care of your child, family member or friend?: No Do you have trouble with day-to-day activities such as bathing, preparing meals, shopping, managing finances, etc.?: No Are you currently unemployed and looking for a job?: No Are you interested in more education?: No Please select the resources that you would like help with: None Currently or been in a relationship where the following occur: I choose not to answer THRIVE Score: 2 AUDIT C Alcohol Use Questionnaire (AUDIT-C) 1. How often do you have a drink containing alcohol?: Never Total Score: 0 VENU-7 AMB Questionnaire VENU-7 Date VENU - 7 assessed: 09/02/23 Feeling nervous, anxious, or on edge: 0 = Not at all Not being able to stop or control worryin = Not at all Worrying too much about different things: 0 = Not at all Trouble relaxin = Not at all Being so restless that it is hard to sit still: 0 = Not at all Becoming easily annoyed or irritable: 0 = Not at all Feeling afraid as if something awful might happen: 0 = Not at all Total VENU-7 score (0-4 normal; 5-9 mild; 10-14 moderate; 15-21 severe): 0 Source: Developed by Drs. Jaime Pineda, Katarina Sahu, Luis Flores and colleagues, with an educational yaa from [employer]. VENU-7 Assessment Billing VENU-7 Assessment Tool: VENU-7 Assessment 87837 Review of Systems Const Denies fever(s) and Denies headache(s) Eyes Denies change in vision ENT Denies dizziness, Denies headache(s), Denies nasal congestion, Denies nasal discharge and Denies sore throat Card Denies chest pain, Denies lightheadedness, Denies palpitations and Denies dyspnea Resp Denies chest congestion, Denies cough, Denies dyspnea and Denies wheezing GI Denies abdominal pain, Denies change in bowel habits and Denies heartburn Denies hematuria, Denies difficulty urinating and Denies urinary frequency Musc Reports as per HPI Skin/Breast Denies breast mass and Denies rash Neuro Denies dizziness and Denies headache(s) Psych Reports no additional complaints Endo Denies polydipsia, Denies polyuria and Denies palpitations Rodolfo/Lymph Denies easy bruising Aller/Immun Denies seasonal rhinorrhea and Denies wheezing Physical exam (Primary Care) Vital Signs: Last Vital Signs Temp 98.0 F 10/01/24 09:31 Pulse 69 10/01/24 09:31 Resp 16 10/01/24 09:31 BP 108/72 10/01/24 09:31 Pulse Ox 98 10/01/24 09:31 Oxygen Delivery Method Room Air 10/01/24 09:31 BMI result Body Mass Index 38.7 Tobacco/Smoking Status: Tobacco use Status Tobacco use date assessed 10/01/24 10/01/24 09:36 Patient Tobacco Use Status Former Tobacco user 10/01/24 09:36 e-Cigarette/Vaping Use Currently Using 10/01/24 09:36 PHQ-9: PHQ-9 Score PHQ-9: Total score 0 10/04/24 01:33 Depression Screening Interpretation: Negative Thrive Assessment: Date of Thrive Assessment Date Thrive assessed 12/02/23 10/01/24 09:36 Currently or been in a relationship where the following occur: I choose not to answer Const General: no acute distress Orientation/consciousness: patient oriented x3 HENMT Head: Yes normal to inspection and Yes normocephalic Ears: hearing grossly normal bilaterally and TM's normal bilaterally General nose exam: Normal external nose present Mouth: Normal oral and palatal mucosa present Eyes General: appearance normal, both eyes and all related structures Sclerae: sclerae normal Pupils: Equal, round and reactive pupils present EOM: EOMs intact bilaterally Neck Neck: Yes normal visual inspection, Yes full ROM and Yes no lymphadenopathy Resp Effort & Inspection: normal respiratory effort Auscultation: clear to auscultation bilaterally Cardio Rate: regular rate Rhythm: regular rhythm Heart sounds: S1 normal heart sound present and S2 normal heart sound present GI Inspection: Yes normal to inspection Auscultation: normal bowel sounds Rectal Exam - Male: Yes deferred Skin General skin exam: no rashes or lesions noted Neuro General: patient oriented x3 Cranial nerves: Yes CN's II-XII intact bilaterally and Yes Equal, round and reactive pupils present Cognition (Neuro): normal cognition Gait exam (Neuro): Normal gait present Motor exam (neuro): 5/5 motor strength present throughout Romberg Test: Negative Extrem Other: Crepitus in both knees noted, deep indentation on right biceps area Psych Appearance: grossly normal and well kempt Mental Status: mental status grossly normal Speech and movement: Normal speech and movement present Affect: normal affect Coding Level of Care Code Est Pt Prev Care 18-39y(00536) Diagnoses Annual visit for general adult medical examination with abnormal findings Z. Hypogonadism in male E29.1 Plantar fasciitis M72.2 Bilateral chronic knee pain M25.561; M25.562; G89.29 Dyslipidemia E78.5 History of prediabetes Z87.898 Obesity (BMI 30-39.9) E66.9 Sexual dysfunction R37 Obstructive sleep apnea G47.33 Additional Codes PHQ-9 - 96137 - PHQ-9 Billing: Yes ([id number]) VENU-7 Assessment Billing - VENU-7 Assessment Tool: VENU-7 Assessment 70621 ([id number]) Assessment & Plan Assessment & Plan (1) Annual visit for general adult medical examination with abnormal findings: Code(s): Z00.01 - Encounter for general adult medical examination with abnormal findings Plan: Recent fasting lab results reviewed with patient.. Recommended dental visit every 6 months and regular eye exams, at least every 2 years. Continue doing self-testicular exam check for any mass has had Tdap in the past but does not want to get any further vaccinations. (2) Hypogonadism in male: Code(s): E29.1 - Testicular hypofunction Category: Medical Plan: Referred to urology (3) Plantar fasciitis: Comment: Will refer to Podiatry. Code(s): M72.2 - Plantar fascial fibromatosis Category: Medical Plan: Referral to podiatry (4) Bilateral chronic knee pain: Code(s): M25.561 - Pain in right knee; M25.562 - Pain in left knee; G89.29 - Other chronic pain Category: Medical Plan: Takes diclofenac 50 mg 1 tablet twice a day as needed for pain, always take with food, avoid any other NSAIDs when taking this medication. Orthopedic consult ordered (5) Dyslipidemia: Code(s): E78.5 - Hyperlipidemia, unspecified Category: Medical Plan: Resume taking rosuvastatin 5 mg daily and increase intake of [place] 3 fatty acid supplements now to 1 capsule twice a day in addition to adherence to healthy eating habits and regular exercise. (6) History of prediabetes: Code(s): Z87.898 - Personal history of other specified conditions Category: Medical Plan: Your previous fasting blood sugars were elevated above 100 mg/dL. Impaired glucose metabolism increases the risk for developing diabetes mellitus type 2, as well as heart attack and stroke later on. Lifestyle changes that promotes weight loss, healthy eating habits, and regular exercise are important, and can prevent the progression to diabetes (7) Obesity (BMI 30-39.9): Code(s): E66.9 - Obesity, unspecified Category: Medical Plan: Continued on phentermine, in addition to adherence to healthy eating habits and regular exercise. (8) Sexual dysfunction: Comment: Will refer to Urology. Code(s): R37 - Sexual dysfunction, unspecified Category: Medical Plan: Currently on tadalafil 20 mg daily as needed, urology consult ordered (9) Obstructive sleep apnea: Comment: AHI is 57 and Oxygen Silas to 77% Code(s): G47.33 - Obstructive sleep apnea (adult) (pediatric) Category: Medical Plan: Continued on CPAP and reinforced importance of weight loss Plan - Resume atorvastatin and increase omega-3 intake as directed. - Continue phentermine for weight management and focus on diet and exercise. - Follow up with endocrinology for hypogonadism management. - Attend scheduled ultrasound for testicular evaluation. - Continue using CPAP for sleep apnea. - Manage constipation with dietary fiber and stool softeners. - Return for follow-up in three months to reassess health status. Patient was informed and verbally consented to the use of an Ambien scribe for clinical documentation Orders: Referrals Urology Referral E29.1 - Testicular hypofunction, N50.811 - Right testicular pain Orthopedics Referral G89.29 - Other chronic pain, M25.561 - Pain in right knee, M25.562 - Pain in left knee Podiatry Referral M72.2 - Plantar fascial fibromatosis Medications: New famotidine 40 mg PO DAILY 90 tabs 1RF NS rosuvastatin 5 mg PO DAILY 90 tabs 1RF Changed From omega-3 acid ethyl esters (Lovaza) 1 cap PO DAILY 60 caps 5RF To omega-3 acid ethyl esters (Lovaza) 1 cap PO BID 60 caps 5RF Refilled phentermine must administer 2 hours after breakfast 37.5 mg PO DAILY 30 caps 0RF 30 days E66.9 - Obesity, unspecified
== END 2024-10-01 16:20 | disposition home or self-care (01) ==
LOC: HO.HMCC 09:00
PROVIDERS: PCP Internal Medicine; Visit Provider Internal Medicine
DX: Z00.01 Encounter for general adult medical examination with abnormal findings (principal); E29.1 Testicular hypofunction; E66.9 Obesity, unspecified; Z68.38 Body mass index [BMI] 38.0-38.9, adult; M72.2 Plantar fascial fibromatosis; M25.561 Pain in right knee; M25.562 Pain in left knee; G89.29 Other chronic pain; E78.5 Hyperlipidemia, unspecified; Z87.898 Personal history of other specified conditions; R37 Sexual dysfunction, unspecified; G47.33 Obstructive sleep apnea (adult) (pediatric)

== ENCOUNTER → 2024-10-01 09:00 | Outpatient (BNVA) | payer OTHER, SELFPAY | PROVIDERS: PCP Internal Medicine; Visit Provider Internal Medicine | DX: Z00.01 Encounter for general adult medical examination with abnormal findings (principal); E66.01 Morbid (severe) obesity due to excess calories; E29.1 Testicular hypofunction; N50.811 Right testicular pain; M25.561 Pain in right knee; M25.562 Pain in left knee; G47.33 Obstructive sleep apnea (adult) (pediatric); K59.00 Constipation, unspecified; M72.2 Plantar fascial fibromatosis; G89.29 Other chronic pain; R37 Sexual dysfunction, unspecified; Z87.898 Personal history of other specified conditions; Z68.38 Body mass index [BMI] 38.0-38.9, adult; Z99.89 Dependence on other enabling machines and devices | CPT/HCPCS: 96127 ==

== ENCOUNTER 2024-10-16 08:56 | Outpatient (AMB) | payer OTHER, SELFPAY ==
--- NOTE | 2024-10-16 09:05 | A.OFFVIS_ITS ---
Vital Signs 10/16/24 09:06 Height 5 ft 9 in Weight 257 lb BMI 37.9 BP 122/84 Blood Pressure Location Lt brachial Pulse 78 Pulse Source Pulse Oximeter Pulse Oximetry (%) 99 Oxygen Delivery Method Room Air Intake Visit Reasons: 3 mo follow up Intake Note: Patient presents follow up [facility] . Compliance in chart(41/41days, >=4hrs- 98%, Average Usage 6hr 33min, Med pressure- 11.2, Med leaks- 4.7, AHI- 1.4) Ortho booked 11/22. Accompanied by: Self / Same As Patient Allergies No Known Allergies Allergy (Verified 10/16/24 09:09) HPI Comments Details: 39 year old male referred to us for evaluation of sleep by his PCP. HST completed 06/25/2024 RU is 57.2 OAI 33.2, Oxygen Nadirs to 77%, start cpap at [id number] and monitor for compliance. [facility] Compliance Report 08/2024-10/12/2024 Total avg use 41/41days, >=4hrs- 98%, Avg Usage 6hr 33min Med pressure- 11.2, Med leaks- 4.7, AHI- 1.4) He has been using the cpap and feels less fatigued, and diminished snoring. He sleeps through the night now and more energetic in the morning. He gets up feeling like he is bloated and has to burp to get the air out of his chest. He is a [employer] and stands on his feet most of the day, c/o pain radiating into his shins. He is being followed by podiatry for cortisone shots and ortho is booked for 11/22. RLS, symptoms + pins, needles, radiating, burning pain and paresthesias has received cortisone shots in the past which helped. He denies parasomnias, denies abnormal sleep behavior. He has anxiety and gets overwhelmed with emotions, takes albuterol for panic attacks. He has R. arm bicep tendon rupture, and would like to try PT again, gets discouraged about his r. arm. He washes his mask, rinses hoses, changes filters, and fills the reservoir with water. [facility], [facility] Medical History Biceps tendon rupture Bilateral chronic knee pain Obesity (BMI 30-39.9) Dyslipidemia Surgical History No history of previous surgery Family History Maternal Uncle Substance use disorder Mental health disorder Paternal Uncle Substance use disorder Father No problems noted. Mother No problems noted. Son ADHD Social History Housing: House Alcohol intake: former Patient Tobacco Use Status: Former Tobacco user e-Cigarette/Vaping Use: Currently Using service: No Current occupational status: employed Current occupation: [employer] Cognitive needs: No Hearing needs: No Vision needs: Yes Review of Systems Neuro Reports Abnormal speech present Physical Exam Vital Signs: Last Vital Signs Pulse 78 10/16/24 09:06 BP 122/84 10/16/24 09:06 Pulse Ox 99 10/16/24 09:06 Oxygen Delivery Method Room Air 10/16/24 09:06 BMI result Body Mass Index 37.9 Const General: cooperative, comfortable and no acute distress Nutritional Appearance: obese (BMI 40.9) morbidly obese Orientation/consciousness: patient oriented x3 HEENT Face and sinus: Yes face symmetric Teeth and gingiva: other ([place] score is 4) Eyes Pupils: Equal, round and reactive pupils present Neck Neck: Yes full ROM and Yes supple Resp Effort & Inspection: normal respiratory effort and able to speak in complete sentences Neuro General: patient oriented x3 and moves all extremities Cranial nerves: Yes Equal, round and reactive pupils present, Yes Normal accommodation reflex present, Yes Bilaterally intact EOM present, Yes Normal facial strength present, Yes Midline tongue present, Yes Ability to bilaterally rotate head present and Yes Ability to bilaterally elevate shoulders present Cognition (Neuro): normal cognition Speech: Abnormal speech present Gait exam (Neuro): Normal gait present Motor exam (neuro): 5/5 motor strength present throughout and Normal motor muscle tone present throughout Psych Appearance: grossly normal Thought process: Normal thought process present Thought content: Normal thought content present Results Reviewed Results Reviewed: [facility] Compliance Report 08/2024-10/12/2024 Total avg use 41/41days, >=4hrs- 98%, Avg Usage 6hr 33min Med pressure- 11.2, Med leaks- 4.7, AHI- 1.4) Labs reviewed with patient. Assessment & Plan Assessment & Plan (1) KAILA on CPAP: Comment: on cpap will send for titration Code(s): G47.33 - Obstructive sleep apnea (adult) (pediatric) Category: Medical (2) Rupture of right distal biceps tendon: Comment: PT for bicep tendon rupture, therapeutic exercises. Code(s): S46.211A - Strain of muscle, fascia and tendon of other parts of biceps, right arm, initial encounter Category: Medical Qualifiers: Encounter type: initial encounter Qualified Code(s): S46.211A - Strain of muscle, fascia and tendon of other parts of biceps, right arm, initial encounter (3) Plantar fasciitis: Comment: PCP has referred to podiatry for eval. Code(s): M72.2 - Plantar fascial fibromatosis Category: Medical (4) Vitamin D deficiency: Comment: continue vit d daily Code(s): E55.9 - Vitamin D deficiency, unspecified Category: Medical Plan: Continue Vit D 50mcg po daily. (5) Anxiety and depression: Comment: declines SSRI today/ Code(s): F41.9 - Anxiety disorder, unspecified; F32.A - Depression, unspecified Category: Medical Plan KAILA on CPAP continue use daily and >4 hours [place] send him for titraiton as pressures are too high, he feels bloated and belching. Will monitor for RLS at next visit. PT for Bicep Tendon Rupture Labs reviewed, stop B6, HDL is low omega 3 fatty acids, salmon, jadyn and flax seeds can help to elevate HDL. LDL is high, Triglycerides elevated., ALT is elevated. Anxiety download the [employer] asael for daily renditions of mental health support. 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 Orders: Orders RT PSG in-lab sleep titration Today G47.33 - Obstructive sleep apnea (adult) (pediatric) PT Evaluation and Treatment Today S46.211A - Strain of muscle, fascia and tendon of other parts of biceps, right arm, initial encounter Patient Instructions: Sleep Hygiene provided: set a scheduled bedtime and wake time to help regulate the circadian rhythm and balance the release of pituitary hormones. Sleep in a dark room, temperatures below 68 degrees, and no devices n bed. Limit caffeinated products 6 hours prior to bed, and limit fluids 2-4 hours prior to bed. Gentle night yoga, diffusing essential oils, and playing soft music can be relaxing. Coding Level of Care Code Est Pt Level 4 (83565) Diagnoses KAILA on CPAP G47.33 Rupture of right distal biceps tendon, initial encounter S46.211A Encounter type: initial encounter Plantar fasciitis M72.2 Vitamin D deficiency E55.9 Anxiety and depression F41.9; F32.A Time Spent (min) 30 Comment kaila improved
[2024-10-16 09:06] VITALS: BP 122/84; PULSE 78; O2SAT 99; BMI 37.9
--- OUTSIDE RECORDS SUMMARY | 2024-10-16 09:15 | XMS_ITS | Clinical Summary ---
Author Organization [employer] Address [address] [place] [address] Care Team Providers Care Hooker Up Name Role Phone Shreya Ace MD Primary Care Provider [phone] Allergies No known active allergies Medications cholecalciferol [...] AM EDT) Cholesterol, Total 180 <200 mg/dL [facility] HDL Cholesterol 25(L) > OR = 40 mg/dL [facility] Triglycerides 469(H) <150 mg/dL [facility] Comment: If a non-fasting specimen was collected, consider repeat triglyceride testing on a fasting specimen if clinically indicated. Flory et al. J. of Clin. Lipidol. 2015;9:129-169. LDL Cholesterol Ques t [employer] Comment: LDL cholesterol not calculated. Triglyceride levels [...] LDL-C. Milton SS et al. KEESHA. 2013;310(19): 5063-3106 (http://education.[employer]/faq/HSP718) Chol/HDLC Ratio 7.2(H) <5.0 (calc) [facility] Non-HDL Cholesterol 155(H) <130 mg/dL (calc) [facility] Comment: For patients with diabetes plus 1 [...] BLOOD ORDERABLES Final Resul t [facility] [address], [place] [address] [employer] [place] [email or web address] [address] [place] [address] from Last 3 Months or Most Recently Relevant to Health Maintenance Insurance [employer] C3 Care Teams Hooker Up Relationship Specialty Start Date End Date Shreya Ace MD [address] [place] [id number] PCP - General Family Medicine 06/27/19
== END 2024-10-16 09:55 | disposition home or self-care (01) ==
LOC: HO.HSMS 08:58
PROVIDERS: PCP Internal Medicine; Visit Provider Physician Assistant Medical
DX: G47.33 Obstructive sleep apnea (adult) (pediatric) (principal); S46.211A Strain of muscle, fascia and tendon of other parts of biceps, right arm, initial encounter; M72.2 Plantar fascial fibromatosis; E55.9 Vitamin D deficiency, unspecified; F41.9 Anxiety disorder, unspecified; F32.A Depression, unspecified
CPT/HCPCS: 99214

== ENCOUNTER 2024-10-23 13:33 | Outpatient (AMB) | payer OTHER, SELFPAY ==
--- NOTE | 2024-10-23 14:03 | A.OFFVIS_ITS ---
Vital Signs 10/23/24 14:14 Height 5 ft 9 in Weight 257 lb BMI 37.9 Intake Visit Reasons: New Prob - B/L knee Pain Intake Note: Ishan is a 39 year old male who presents today fore a evaluation of her his bilateral knee pain. Patient states that his pain has been going on for a couple years. He has tried injections in his knee through [facility] which gave him relief. Patient states that his right knee is worse than the left knee. 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 He notices that his pain is worse when he is bending, walking down and up the stairs. Allergies No Known Allergies Allergy (Verified 10/23/24 14:11) HPI HPI New Prob - B/L knee Pain: Details: Mr. Cheung is a 39-year-old male who presents to the office today for bilateral knee pain. He reports that he was previously seen by [facility] and had received 2 cortisone injections in bilateral knees. He was told that he had patellofemoral arthritis. 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 This causes an increased pain for him. Additionally, going up and down stairs as well as squatting/kneeling caused an increase in pain. He would like to discuss injec tions today. [facility]LY [facility] Medical History Biceps tendon rupture Bilateral chronic knee pain Obesity (BMI 30-39.9) Dyslipidemia Surgical History No history of previous surgery Family History Maternal Uncle Substance use disorder Mental health disorder Paternal Uncle Substance use disorder Father No problems noted. Mother No problems noted. Son ADHD Social History Housing: House Alcohol intake: former Patient Tobacco Use Status: Former Tobacco user e-Cigarette/Vaping Use: Currently Using service: No Current occupational status: employed Current occupation: [employer] Cognitive needs: No Hearing needs: No Vision needs: Yes Review of Systems Const All systems reviewed & are unremarkable except as noted in HPI and below Physical Exam Vital Signs: BMI result Body Mass Index 37.9 Const General: cooperative, healthy appearing and no acute distress Resp Effort & Inspection: normal respiratory effort and able to speak in complete sentences Extrem Other: Right/Left knee: Normal to inspection. No ecchymosis, erythema, or joint effusion. Slight tenderness to palpation lateral joint line bilaterally. Laxity with patellar apprehension. Pain with patellar grind. Full knee extension and flexion. Negative Lynda's. Negative anterior drawer. NVI. Psych Appearance: grossly normal Mental Status: mental status grossly normal Attitude: cooperative Office Procedures AMB Joint Injection/Aspiration Joint Injection/Aspiration Primary Site: right knee Secondary Site: left knee Prep: site was prepped using aseptic technique, ethochloride spray was applied and injection warnings given Injected: 80 mg of, DepoMedrol, with 8 mL of (2% plain lidocaine) and in the joint Approach Used: anterolateral Procedure: The patient tolerated the procedure well, but had some pain with the injection and there was some relief with the local anesthesia Coding 66194 - Bilateral Large Joint Procedure code (CPT) selection complete Assessment & Plan Assessment & Plan (1) Patellofemoral syndrome, bilateral: Code(s): M22.2X1 - Patellofemoral disorders, right knee; M22.2X2 - Patellofemoral disorders, left knee Category: Medical Plan Mr. Cheung is a 39-year-old male who presents to the office today for bilateral knee pain. He reports that he was previously seen by [facility] and had received 2 cortisone injections in bilateral knees. He was told that he had patellofemoral arthritis. 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 This causes an increased pain for him. Additionally, going up and down stairs as well as squatting/kneeling caused an increase in pain. He would like to discuss injections today. The patient was offered a cortisone injection in bilateral knees with 80 mg of DepoMedrol. The patient was explained the risks, benefits, and alternatives to receiving this injection. After receiving consent for the injection, the patient had the procedure done while in the office today. The patient tolerated the procedure well with no complications. Patient reports that cortisone injections work well and resolve his pain. I educated the patient on importance of physical therapy and quad, glute and core strengthening. Follow-up will be PRN, or sooner if needed X-rays of the bilateral knees which were obtained while in the office today and were reviewed by me, Mariana Lyon PA-C, revealed no acute fracture or dislocation. Orders: Orders XR knee LT 3V Today M25.569 - Pain in unspecified knee XR knee RT 3V Today M25.569 - Pain in unspecified knee Coding Level of Care Code Est Pt Level 3 (69262) Diagnoses Patellofemoral syndrome, bilateral M22.2X1; M22.2X2 CPT Codes Coding - 11714 - Bilateral Large Joint: 11277 - Bilateral Large Joint ([id number])
[2024-10-23 14:14] VITALS: BMI 37.9
--- OUTSIDE RECORDS SUMMARY | 2024-10-23 14:25 | XMS_ITS | Clinical Summary ---
Author Organization [employer] Address [address] [place] [address] Care Team Providers Care Hose Maker Name Role Phone Shreya Ace MD Primary Care Provider [phone] Allergies No known active allergies Medications cholecalciferol [...] AM EDT) Cholesterol, Total 180 <200 mg/dL [facility] HDL Cholesterol 25(L) > OR = 40 mg/dL [facility] Triglycerides 469(H) <150 mg/dL [facility] Comment: If a non-fasting specimen was collected, consider repeat triglyceride testing on a fasting specimen if clinically indicated. Flory et al. J. of Clin. Lipidol. 2015;9:129-169. LDL Cholesterol Ques t [facility] Comment: LDL cholesterol not calculated. Triglyceride levels [...] LDL-C. Milton SS et al. KEESHA. 2013;310(19): 9822-7305 (http://education.Pixonic/faq/JTN559) Chol/HDLC Ratio 7.2(H) <5.0 (calc) [facility] Non-HDL Cholesterol 155(H) <130 mg/dL (calc) [facility] Comment: For patients with diabetes plus 1 [...] BLOOD ORDERABLES Final Resul t [facility] [address], [place] [address] [employer] [place] [employer] [address] [place] [address] from Last 3 Months or Most Recently Relevant to Health Maintenance Insurance [employer] C3 Care Teams Hose Maker Relationship Specialty Start Date End Date Shreya Ace MD [address] [place] [id number] PCP - General Family Medicine 06/27/19
== END 2024-10-23 14:41 | disposition home or self-care (01) ==
LOC: HO.HOS 13:34
PROVIDERS: PCP Internal Medicine; Visit Provider Physician Assistant
DX: M22.2X1 Patellofemoral disorders, right knee (principal); M22.2X2 Patellofemoral disorders, left knee
CPT/HCPCS: 20610; 99213

== ENCOUNTER 2024-10-23 13:33 | Outpatient (REF) | payer OTHER, SELFPAY ==
--- NOTE | ~2024-10-23 | XR_ITS ---
EXAMINATION: XR KNEE, RIGHT CLINICAL INFORMATION: M25.569 - Pain in unspecified knee COMPARISON: None available. TECHNIQUE: AP in standing position both knees. Lateral and sunrise projection of the right knee. FINDINGS: Joint space narrowing involving mostly the medial compartment. No acute cortical disruption or malalignment. No lytic or blastic lesions. No suprapatellar bursa joint effusion. XR/XR knee RT 3V IMPRESSION: Mild medial compartment osteoarthrosis-osteoarthritis. Electronically signed by: Santiago Palafox MD 10/23/2024 03:14 PM EDT
--- NOTE | ~2024-10-23 | XR_ITS ---
EXAMINATION: XR KNEE, LEFT CLINICAL INFORMATION: M25.569 - Pain in unspecified knee COMPARISON: Correlated to AP in standing position dated October 23, 2024. TECHNIQUE: Lateral and sunrise views of the left knee. FINDINGS: Mild medial compartmental joint space narrowing. No acute cortical disruption or malalignment. No suprapatellar bursa joint effusion. No lytic or blastic lesion. XR/XR knee LT 3V IMPRESSION: Mild medial compartment osteoarthrosis/osteoarthritis. Electronically signed by: Santiago Palafox MD 10/23/2024 03:15 PM EDT
== END 2024-10-23 13:34 | disposition home or self-care (01) ==
LOC: HO.HOSX 13:33
PROVIDERS: PCP Internal Medicine; Visit Provider Physician Assistant
DX: M22.2X1 Patellofemoral disorders, right knee (principal); M22.2X2 Patellofemoral disorders, left knee; M25.561 Pain in right knee; M25.562 Pain in left knee
CPT/HCPCS: 20610; 73562; J1010; J2003

== ENCOUNTER → 2024-10-23 13:52 | Outpatient (BNV) | payer OTHER, SELFPAY | PROVIDERS: PCP Internal Medicine; Visit Provider Radiology Diagnostic Radiology | DX: M25.562 Pain in left knee (principal); M25.561 Pain in right knee | CPT/HCPCS: 73562 ==

== ENCOUNTER → 2024-11-06 11:44 | Outpatient (REF) | payer OTHER, MEDICAID, SELFPAY ==
--- OUTSIDE RECORDS SUMMARY | 2024-11-06 12:46 | XMS_ITS | Encounter Summary ---
Author Organization [employer] Address [address] [place] [address] Care Team Providers Care Fly Rail Operator Name Role Phone Shreya Ace MD Primary Care Provider [phone] Kaia Low CNP Primary Care Provider [phone] Encounter Details Date Type Department Care Team ([facility] Contact Info) Description 06/16/2022 Telephone [facility] MEDICINE [address] [place], [place] [phone] Shreya Ace MD [address] [place], [place] [phone] Social History Tobacco Use Types Packs/Day Years [...] on filedocumented in this encounter Care Teams Fly Rail Operator Relationship Specialty Start Date End Date Shreya Ace MD 230 [place], [place] [phone] PCP - General Family Medicine 06/27/19 10/23/24 Kaia Low CNP [address] [place] [id number] PCP - General Family Medicine 10/24/24 documented as of this encounter
--- OUTSIDE RECORDS SUMMARY | 2024-11-06 12:46 | XMS_ITS | Encounter Summary ---
Author Organization [employer] Address [address] [place] [address] [address]t [place] [address] Care Team Providers Care Farm Mechanic Name Role Phone Shreya Ace MD Primary Care Provider [phone] Kaia Low CNP Primary Care Provider [phone] Encounter Details Date Type Department Care Team ([facility] st Contact Info) Description 03/26/2022 Telephone [facility] MEDICINE [address] [place], [place] [phone] Shreya Ace MD [address] [place] [address] Social History Tobacco Use Types Packs/Day Years [...] on filedocumented in this encounter Care Teams Farm Mechanic Relationship Specialty Start Date End Date Shreya Ace MD 230 [place], [place] [phone] PCP - General Family Medicine 06/27/19 10/23/24 Kaia Low CNP [address] [place], [place] [phone] PCP - General Family Medicine 10/24/24 documented as of this encounter
--- OUTSIDE RECORDS SUMMARY | 2024-11-06 12:46 | XMS_ITS | Clinical Summary ---
Author Organization [employer] Address [address] [place] [address] Care Team Providers Care Network Security Architect Name Role Phone Kaia Low CNP Primary Care Provider [phone] Allergies No known active allergies Medications cholecalciferol [...] AM EDT) Cholesterol, Total 180 <200 mg/dL [facility] HDL Cholesterol 25(L) > OR = 40 mg/dL [facility] Triglycerides 469(H) <150 mg/dL [facility] Comment: If a non-fasting specimen was collected, consider repeat triglyceride testing on a fasting specimen if clinically indicated. Flory et al. J. of Clin. Lipidol. 2015;9:129-169. LDL Cholesterol Ques t [facility] Comment: LDL cholesterol not calculated. Triglyceride levels [...] LDL-C. Milton SS et al. KEESHA. 2013;310(19): 2554-4618 (http://education.CashStar/faq/RDL204) Chol/HDLC Ratio 7.2(H) <5.0 (calc) [facility] Non-HDL Cholesterol 155(H) <130 mg/dL (calc) [facility] Comment: For patients with diabetes plus 1 [...] BLOOD ORDERABLES Final Resul t [facility] [address], [place] [address] [employer] [place] [employer] 200 [place] [address] from Last 3 Months or Most Recently Relevant to Health Maintenance Insurance [employer] C3 Care Teams Network Security Architect Relationship Specialty Start Date End Date Kaia Low CNP [address] [place] [address] [id number] PCP - General Family Medicine 10/24/24
[2024-11-12 01:19] LABS: Testosterone, Free 77.4 pg/mL (35.0-155.0)
== END ==
LOC: HO.SL 11:44
PROVIDERS: PCP Internal Medicine; Referring Provider Urology; Visit Provider Physician Assistant Medical
DX: E29.1 Testicular hypofunction (principal)
CPT/HCPCS: 36415; 84402; 84403

== ENCOUNTER 2024-11-13 11:06 | Outpatient (AMB) | payer OTHER, SELFPAY ==
--- NOTE | 2024-11-13 11:11 | A.OFFVIS_ITS ---
Intake Visit Reasons: Testicle pain Intake Note: Patient presents for: FOLLOW UP Urology Medications: VIT B-6, TADALAFIL Blood Thinner: none LABS DONE 11/06/24: TOTAL TESTO 324, FR TESTO 77.4 Knife Setter Grinder Machine Required: No Accompanied by: Self / Same As Patient Allergies No Known Allergies Allergy (Verified 11/13/24 11:13) HPI Comments Details: Ishan is a very pleasant 38-year-old male patient of Dr. Schaeffer. He has a past medical history of hyperlipidemia, sleep apnea, and GERD. He is seen for the following urologic conditions - male infertility - male hypogonadism Had come off external testosterone supply through [facility] in endocrinology They were unable to give him advice regarding fertility Discussed trial of enclomiphene We will address testosterone anglican and optimize male fertility He has adequate testicular recovery after stopping testosterone Male hypogonadism Initial therapy with low testosterone started whilst incarcerated secondary to opioid recovery PSA 10/04 0.3 FSH 10/04 3.7 LH 10/04 5.7 SHBG 10/04 12.2 Free testosterone 10/04 7.62 % free testosterone 10/04 4.4% Total testosterone 10/04 172.8, 11/05 324 Fr 77 PFSH Medical History Biceps tendon rupture Bilateral chronic knee pain Obesity (BMI 30-39.9) Dyslipidemia Surgical History No history of previous surgery Family History Maternal Uncle Substance use disorder Mental health disorder Paternal Uncle Substance use disorder Father No problems noted. Mother No problems noted. Son ADHD Social History Housing: House Alcohol intake: former Patient Tobacco Use Status: Former Tobacco user e-Cigarette/Vaping Use: Currently Using service: No Current occupational status: employed Current occupation: [employer] Cognitive needs: No Hearing needs: No Vision needs: Yes Review of Systems Const Denies chills and Denies fever(s) Card Reports no additional complaints and Denies syncope Resp Denies cough GI Denies abdominal pain and Denies heartburn Reports as per HPI and Denies change in libido Neuro Denies syncope Psych Denies change in libido Endo Denies change in libido Physical Exam Const General: cooperative, healthy appearing, comfortable and no acute distress Orientation/consciousness: patient oriented x3 HEENT Face and sinus: Yes normal facial exam Mouth: moist mucous membranes Neck Neck: Yes normal visual inspection, Yes full ROM and Yes trachea midline Chest Chest palpation & inspection: normal inspection of the chest Resp Effort & Inspection: normal respiratory effort, able to speak in complete sentences and no respiratory distress GI Inspection: Yes normal to inspection Back/Spine/Pelvis Cervical Spine: normal cervical lordosis Thoracic/Lumbar Spine: thoracic and lumbar spine normal to inspection Skin General skin exam: no rashes or lesions noted Neuro General: patient oriented x3, gait normal, tone normal and moves all extremities Extrem General: Yes normal to inspection and Yes capillary refill normal Assessment & Plan Assessment & Plan (1) Hypogonadism in male: Code(s): E29.1 - Testicular hypofunction Category: Medical (2) Male infertility: Code(s): N46.9 - Male infertility, unspecified Category: Medical Plan Start medication Three-month follow-up lab work Orders: Orders Testosterone, Free/Total 10 Weeks E29.1 - Testicular hypofunction Lutenizing Hormone 10 Weeks E29.1 - Testicular hypofunction Medications: New [enclomiphene] Patient Cell Number - [phone] [facility] - Fax , 1 tab PO DAILY 90 tabs 0RF 90 days E29.1 - Testicular hypofunction Patient Instructions: This note is constructed using voice recognition software. While every effort has been made to ensure accuracy forming department supervisor errors may have been included. Imaging studies, laboratory and physical exam results were discussed and reviewed in detail. No major barriers to patient understanding were identified. An opportunity to ask questions regarding the treatment plan was provided. All questions were answered. The patient expressed understanding and agreement with the above treatment plan. The patient is aware they should contact our office by phone for worsening of their current condition or the appearance of new urologic symptoms. Compliance is encouraged with any medications and followup testing that is ordered. It is a privilege to participate in the urologic care of your patient. If you have any questions or concerns regarding treatment for the above conditions, or other urologic issues, please do not hesitate to contact me. The office telephone contact is [phone]. Sincerely, Dr Elder Hernandez MD, [facility] - Urology Compassionate Specialist Care for the Genitourinary System Coding Level of Care Code Est Pt Level 4 (38933) Diagnoses Hypogonadism in male E29.1 Male infertility N46.9
--- OUTSIDE RECORDS SUMMARY | 2024-11-13 12:44 | XMS_ITS | Clinical Summary ---
Author Organization [employer] Address [address] [place] [address] Care Team Providers Care International Account Manager Name Role Phone Kaia Low CNP Primary Care Provider [phone] Allergies No known active allergies Medications cholecalciferol [...] AM EDT) Cholesterol, Total 180 <200 mg/dL [facility] HDL Cholesterol 25(L) > OR = 40 mg/dL [facility] Triglycerides 469(H) <150 mg/dL [facility] Comment: If a non-fasting specimen was collected, consider repeat triglyceride testing on a fasting specimen if clinically indicated. Flory et al. J. of Clin. Lipidol. 2015;9:129-169. LDL Cholesterol Ques t [facility] Comment: LDL cholesterol not calculated. Triglyceride levels [...] LDL-C. Milton SS et al. KEESHA. 2013;310(19): 7174-5764 (http://education.Coding Technologies/faq/RZB994) Chol/HDLC Ratio 7.2(H) <5.0 (calc) [facility] Non-HDL Cholesterol 155(H) <130 mg/dL (calc) [facility] Comment: For patients with diabetes plus 1 [...] BLOOD ORDERABLES Final Resul t [facility] [address], [place] [address] [employer] [place] [employer] [address] [place] [address] from Last 3 Months or Most Recently Relevant to Health Maintenance Insurance [email or web address] C3 Care Teams International Account Manager Relationship Specialty Start Date End Date Kaia Low CNP [address] [place] [address] [id number] PCP - General Family Medicine 10/24/24
--- OUTSIDE RECORDS SUMMARY | 2024-11-13 12:44 | XMS_ITS | Encounter Summary ---
Author Organization [employer] Address [address] [place] [address] [address] [place] [address] Care Team Providers Care Marketing Secretary Name Role Phone Shreya Ace MD Primary Care Provider [phone] Kaia Low CNP Primary Care Provider [phone] Encounter Details Date Type Department Care Team ([facility] st Contact Info) Description 03/26/2022 Telephone [facility] MEDICINE [address] [place], [place] [phone] Shreya Ace MD [address] [place] [address] Social History Tobacco Use Types Packs/Day Years [...] on filedocumented in this encounter Care Teams Marketing Secretary Relationship Specialty Start Date End Date Shreya Ace MD 230 [place], [place] [phone] PCP - General Family Medicine 06/27/19 10/23/24 Kaia Low CNP 230 [place], [place] [phone] PCP - General Family Medicine 10/24/24 documented as of this encounter
--- OUTSIDE RECORDS SUMMARY | 2024-11-13 12:44 | XMS_ITS | Encounter Summary ---
Author Organization [employer] Address [address]t [place] [address] Care Team Providers Care Maintainer Central Office Name Role Phone Shreya Ace MD Primary Care Provider [phone] Kaia Low CNP Primary Care Provider [phone] Encounter Details Date Type Department Care Team ([facility] Contact Info) Description 06/16/2022 Telephone [facility] MEDICINE 230 [place], [place] [phone] Shreya Ace MD [address] [place], [place] [phone] Social History Tobacco Use Types Packs/Day Years [...] on filedocumented in this encounter Care Teams Maintainer Central Office Relationship Specialty Start Date End Date Shreya Ace MD 230 [place], [place] [phone] PCP - General Family Medicine 06/27/19 10/23/24 Kaia Low CNP [address] [place] [address] PCP - General Family Medicine 10/24/24 documented as of this encounter
== END 2024-11-13 11:51 | disposition home or self-care (01) ==
LOC: HO.HUSH 11:10
PROVIDERS: PCP Internal Medicine; Visit Provider Urology
DX: E29.1 Testicular hypofunction (principal); N46.9 Male infertility, unspecified
CPT/HCPCS: 99214

== ENCOUNTER 2025-01-28 15:50 | Outpatient (AMB) | payer OTHER, SELFPAY ==
[2025-01-28 15:54] VITALS: BP 110/80; PULSE 67; RESP 16; TEMP 36.7; O2SAT 97; BMI 38.8
--- NOTE | 2025-01-28 15:54 | MHC.PC.OV ---
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: No Allergies No Known Allergies Allergy (Verified 01/28/25 16:07) Medication List - Last Reconciled 01/28/25 by Gayathri Schaeffer MD albuterol sulfate 90 mcg/actuation 2 puffs inhalation Q6H PRN cholecalciferol (vitamin D3) 50 mcg PO DAILY diclofenac potassium 50 mg PO BID [enclomiphene 1 tab PO DAILY 90 days] famotidine 40 mg PO DAILY NS melatonin 10 mg PO BEDTIME PRN omega-3 acid ethyl esters (Lovaza) 1 cap PO BID omeprazole 20 mg PO DAILY PRN rosuvastatin 5 mg PO DAILY tadalafil (Cialis) 5 mg PO DAILY 90 days Tobacco use date assessed: 01/28/25 Dental Screening Dental Screen Date: 01/28/25 Did you have a dental visit in the last 12 months?: Yes Did you have a dental problem in the last 6 months where you did not have access to dental care?: No Was dental information given to patient?: Patient has dentist HPI f/u HPI Details 40-year-old male with history of mixed dyslipidemia, and obesity previously on phentermine, here today for follow-up. Patient states that he did well on phentermine but stopped taking it, thinking that he could lose weight on his own. He however stopped going to the gym regularly and has started gaining weight again. He weighed 277 lbs in February, and lost weight down to 245 lbs, likely with the help of phentermine and regular exercise. Now weighs 263 lb. Tolerated phentermine, with no complaints of any chest pain, no palpitations, headache or lightheadedness. [facility] Medical History (Updated 02/04/25 @ 00:07 by Gayathri Schaeffer MD) Mixed dyslipidemia Biceps tendon rupture Bilateral chronic knee pain Obesity (BMI 30-39.9) Surgical History No history of previous surgery Family History Maternal Uncle Substance use disorder Mental health disorder Paternal Uncle Substance use disorder Father No problems noted. Mother No problems noted. Son ADHD Social History Housing: House Alcohol intake: former Patient Tobacco Use Status: Former Tobacco user e-Cigarette/Vaping Use: Currently Using service: No Current occupational status: employed Current occupation: [email or web address] Cognitive needs: No Hearing needs: No Vision needs: Yes Questionnaire PHQ-9 Over the last 2 weeks, how often have you been bothered by any of the following problems? 1. Little interest or pleasure in doing things: not at all 2. Feeling down, depressed, or hopeless: not at all 3. Trouble falling or staying asleep, or sleeping too much: not at all 4. Feeling tired or having little energy: not at all 5. Poor appetite or overeating: not at all 6. Feeling bad about yourself - or that you are a failure or have let yourself or your family down: not at all 7. Trouble concentrating on things, such as reading the newspaper or watching television: not at all 8. Moving or speaking so slowly that other people could have noticed. Or the opposite - being so fidgety or restless that you have been moving around a lot more than usual: not at all 9. Thoughts that you would be better off or of hurting yourself in some way: not at all Total score: 0 Depression Screening Interpretation: Negative Depression Screening Done: Yes Source: Developed by Drs. Jaime Pineda, Katarina Sahu, Luis Flores and colleagues, with an educational yaa from [employer]. Thrive Questionnaire Date Thrive assessed: 10/01/24 I am a: Patient What is your living situation today?: I have a steady place to live Within the past 12 months, did the food you bought not last and you didn't have the money to get more?: Sometimes True Within the past 12 months, did you worry whether your food would run out before you got money to buy more?: Sometimes True Do you have trouble paying for medicines?: No Do you have trouble getting transportation to medical appointments?: No Do you have trouble paying your heating and electricity bill?: No Do you have trouble taking care of your child, family member or friend?: No Do you have trouble with day-to-day activities such as bathing, preparing meals, shopping, managing finances, etc.?: No Are you currently unemployed and looking for a job?: No Are you interested in more education?: No Please select the resources that you would like help with: None Currently or been in a relationship where the following occur: I choose not to answer THRIVE Score: 2 AUDIT C Alcohol Use Questionnaire (AUDIT-C) 1. How often do you have a drink containing alcohol?: Never Total Score: 0 VENU-7 AMB Questionnaire VENU-7 Date VENU - 7 assessed: 09/02/23 Feeling nervous, anxious, or on edge: 0 = Not at all Not being able to stop or control worryin = Not at all Worrying too much about different things: 0 = Not at all Trouble relaxin = Not at all Being so restless that it is hard to sit still: 0 = Not at all Becoming easily annoyed or irritable: 0 = Not at all Feeling afraid as if something awful might happen: 0 = Not at all Total VENU-7 score (0-4 normal; 5-9 mild; 10-14 moderate; 15-21 severe): 0 Source: Developed by Drs. Jaime Pineda, Katarina Sahu, Luis Flores and colleagues, with an educational yaa from [employer]. Review of Systems Const All systems reviewed & are unremarkable except as noted in HPI and below Physical exam (Primary Care) Vital Signs: Last Vital Signs Temp 98.1 F 01/28/25 15:54 Pulse 67 01/28/25 15:54 Resp 16 01/28/25 15:54 BP 110/80 01/28/25 15:54 Pulse Ox 97 01/28/25 15:54 Oxygen Delivery Method Room Air 01/28/25 15:54 BMI result Body Mass Index 38.8 Tobacco/Smoking Status: Tobacco use Status Tobacco use date assessed 01/28/25 01/28/25 16:04 Patient Tobacco Use Status Former Tobacco user 01/28/25 16:04 e-Cigarette/Vaping Use Currently Using 01/28/25 16:04 PHQ-9: PHQ-9 Score PHQ-9: Total score 0 01/28/25 16:28 Depression Screening Interpretation: Negative Thrive Assessment: Date of Thrive Assessment Date Thrive assessed 10/01/24 01/28/25 16:04 Currently or been in a relationship where the following occur: I choose not to answer Const General: no acute distress Orientation/consciousness: patient oriented x3 HENMT Head: Yes normal to inspection and Yes normocephalic General nose exam: Normal external nose present Eyes General: appearance normal, both eyes and all related structures Neck Neck: Yes normal visual inspection, Yes full ROM and Yes no lymphadenopathy Resp Effort & Inspection: normal respiratory effort Auscultation: clear to auscultation bilaterally Cardio Rate: regular rate Rhythm: regular rhythm Heart sounds: S1 normal heart sound present and S2 normal heart sound present GI Inspection: Yes normal to inspection Auscultation: normal bowel sounds Rectal Exam - Male: Yes deferred Skin General skin exam: no rashes or lesions noted Neuro General: patient oriented x3 Cranial nerves: Yes CN's II-XII intact bilaterally Cognition (Neuro): normal cognition Gait exam (Neuro): Normal gait present Motor exam (neuro): 5/5 motor strength present throughout Romberg Test: Negative Extrem Other: Crepitus in both knees noted, deep indentation on right biceps area Psych Appearance: grossly normal and well kempt Mental Status: mental status grossly normal Speech and movement: Normal speech and movement present Affect: normal affect Coding Level of Care Code Complex visit Add On G2211 Diagnoses History of prediabetes Z87.898 Obesity (BMI 30-39.9) E66.9 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 Impaired glucose metabolism increases the risk for developing diabetes mellitus type 2, as well as heart attack and stroke later on. Lifestyle changes that promotes weight loss, healthy eating habits, and regular exercise are important, and can prevent the progression to diabetes. Ordered hemoglobin A1c and basic metabolic panel (2) Obesity (BMI 30-39.9): Code(s): E66.9 - Obesity, unspecified Category: Medical Plan: Will start back on phentermine 37.5 mg , to take 1-2 hours after breakfast. Reinforced importance of combining this with adherence to healthy eating habits and engaging in moderate intensity exercise at least for 30 minutes daily to aid with weight loss. 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 Stressed adherence to low-cholesterol diet and regular exercise, at least 30 minutes 3 to 4 times a week. Advised patient to make healthy food choices, eat more fruits, vegetables, whole grains, wild caught fish and low-fat dairy. Limit amount of meat and fried or fatty food products, as well as processed foods and fast foods. Ordered fasting lipid panel Orders: Orders Vitamin B6 01/28/25 E55.9 - Vitamin D deficiency, unspecified, E66.9 - Obesity, unspecified, E67.2 - Megavitamin-B6 syndrome, E78.5 - Hyperlipidemia, unspecified, Z87.898 - Personal history of other specified conditions Aspartate Amino Transferase 01/28/25 E55.9 - Vitamin D deficiency, unspecified, E66.9 - Obesity, unspecified, E67.2 - Megavitamin-B6 syndrome, E78.5 - Hyperlipidemia, unspecified, Z87.898 - Personal history of other specified conditions Alanine Aminotransferase 01/28/25 E55.9 - Vitamin D deficiency, unspecified, E66.9 - Obesity, unspecified, E67.2 - Megavitamin-B6 syndrome, E78.5 - Hyperlipidemia, unspecified, Z87.898 - Personal history of other specified conditions Lipid Panel 01/28/25 E55.9 - Vitamin D deficiency, unspecified, E66.9 - Obesity, unspecified, E67.2 - Megavitamin-B6 syndrome, E78.5 - Hyperlipidemia, unspecified, Z87.898 - Personal history of other specified conditions Vitamin D 25-OH Total 01/28/25 E55.9 - Vitamin D deficiency, unspecified, E66.9 - Obesity, unspecified, E67.2 - Megavitamin-B6 syndrome, E78.5 - Hyperlipidemia, unspecified, Z87.898 - Personal history of other specified conditions Basic Metabolic Panel Fasting 01/28/25 E55.9 - Vitamin D deficiency, unspecified, E66.9 - Obesity, unspecified, E67.2 - Megavitamin-B6 syndrome, E78.5 - Hyperlipidemia, unspecified, Z87.898 - Personal history of other specified conditions Hemoglobin A1c 01/28/25 E55.9 - Vitamin D deficiency, unspecified, E66.9 - Obesity, unspecified, E67.2 - Megavitamin-B6 syndrome, E78.5 - Hyperlipidemia, unspecified, Z87.898 - Personal history of other specified conditions Medications: New phentermine must administer 30 minutes before or 1-2 hours after breakfast 37.5 mg PO DAILY 30 caps 1RF E66.9 - Obesity, unspecified
== END 2025-01-28 16:30 | disposition home or self-care (01) ==
LOC: HO.HMCC 15:51
PROVIDERS: PCP Internal Medicine; Visit Provider Internal Medicine
DX: E66.9 Obesity, unspecified (principal); E67.2 Megavitamin-B6 syndrome; E78.2 Mixed hyperlipidemia; Z68.38 Body mass index [BMI] 38.0-38.9, adult

== ENCOUNTER 2025-03-12 07:17 | Outpatient (REF) | payer OTHER, MEDICAID, SELFPAY ==
--- OUTSIDE RECORDS SUMMARY | 2025-03-12 09:00 | XMS_ITS | Encounter Summary ---
Author Organization [employer] Address [address] [place] [address] Care Team Providers Care Plastic Tile Layer Name Role Phone Shreya Ace MD Primary Care Provider [phone] Kaia Low CNP Primary Care Provider [phone] Encounter Details Date Type Department Care Team ([facility] Contact Info) Description 06/16/2022 Telephone [facility] MED[facility]INE [address] [place], [place] [phone] Shreya Ace MD [address] [place], [place] [phone] Social History Tobacco Use Types Packs/Day Years [...] on filedocumented in this encounter Care Teams Plastic Tile Layer Relationship Specialty Start Date End Date Shreya Ace MD [address] [place], [place] [phone] PCP - General Family Medicine 06/27/19 10/23/24 Kaia Low CNP [address] [place] [id number] PCP - General Family Medicine 10/24/24 documented as of this encounter
--- OUTSIDE RECORDS SUMMARY | 2025-03-12 09:00 | XMS_ITS | Clinical Summary ---
Author Organization [employer] Address [address] [place] [address] Care Team Providers Care Open Tenter Operator Name Role Phone Kaia Low CNP Primary Care Provider [phone] Allergies No known active allergies Medications cholecalciferol [...] of 3 - 19+ 3-dose series) 02/04/2004 SDOH Screening 07/28/2024 07/29/2023 COVID-19 Vaccine (1 - 2024-2 6 season) 2024 Influenza Vaccine (#1) 2024 Lipid Panel 06/04/2027 [...] AM EDT) Cholesterol, Total 180 <200 mg/dL [facility] HDL Cholesterol 25(L) > OR = 40 mg/dL [employer] [facility] Triglycerides 469(H) <150 mg/dL [facility] Comment: If a non-fasting specimen was collected, consider repeat triglyceride testing on a fasting specimen if clinically indicated. Flory et al. J. of Clin. Lipidol. 2015;9:129-169. LDL Cholesterol Ques t [place] Comment: LDL cholesterol not calculated. Triglyceride levels [...] LDL-C. Milton SS et al. KEESHA. 2013;310(19): 2689-2392 (http://education.ADTZ/faq/NBE946) Chol/HDLC Ratio 7.2(H) <5.0 (calc) [facility] Non-HDL Cholesterol 155(H) <130 mg/dL (calc) [facility] Comment: For patients with diabetes plus 1 [...] BLOOD ORDERABLES Final Resul t [facility] [address], [place] [address] [employer] [place] [employer] [address] [place] [address] from Last 3 Months or Most Recently Relevant to Health Maintenance Insurance [employer] C3 Care Teams Open Tenter Operator Relationship Specialty Start Date End Date Kaia Low CNP PCP - General Family Medicine 10/24/24
--- OUTSIDE RECORDS SUMMARY | 2025-03-12 09:01 | XMS_ITS | Encounter Summary ---
Author Organization [employer] Address [address] [place] [address] Care Team Providers Care Graphic Arts Instructor Name Role Phone Shreya Ace MD Primary Care Provider [phone] Kaia Low CNP Primary Care Provider [phone] Encounter Details Date Type Department Care Team ([facility] st Contact Info) Description 03/26/[address] [facility] MEDICINE [address] [place], [place] [phone] Shreya Ace MD [address] [place] [address] Social History Tobacco Use Types Packs/Day Years [...] on filedocumented in this encounter Care Teams Graphic Arts Instructor Relationship Specialty Start Date End Date Shreya Ace MD [address] [place], [place] [phone] PCP - General Family Medicine 06/27/19 10/23/24 Kaia Low CNP [address] [place], [place] [phone] PCP - General Family Medicine 10/24/24 documented as of this encounter
[2025-03-12 11:27] LABS: Alanine Aminotransferase 90 U/L (0-40); Anion Gap 10 (12-20); Aspartate Amino Transferase 230 U/L (5-37); Blood Urea Nitrogen 21 mg/dL (9-16); Calcium 8.7 mg/dL (8.4-10.2); Carbon Dioxide 24 mmol/L (22-29); Chloride 108 mmol/L (96-108); Cholesterol 205 mg/dL (<200); Estimated Glomerular Filt Rate > 60; HDL Cholesterol 26 mg/dL (>40); Potassium 3.9 mmol/L (3.3-5.1); Sodium 138 mmol/L (135-145); Triglycerides 462 mg/dL (<150)
== END 2025-03-12 07:18 | disposition home or self-care (01) ==
LOC: HO.HMGCLDS 07:17
PROVIDERS: Absent Provider Urology; PCP Internal Medicine; Visit Provider Internal Medicine
DX: E29.1 Testicular hypofunction (principal); E66.9 Obesity, unspecified; E67.2 Megavitamin-B6 syndrome; E55.9 Vitamin D deficiency, unspecified; Z13.1 Encounter for screening for diabetes mellitus; Z87.898 Personal history of other specified conditions
CPT/HCPCS: 36415; 80048; 80061; 82306; 83002; 83036; 84207; 84402; 84403; 84450; 84460